=== PATIENT | female | born 1955 | race Caucasian/White ===

== ENCOUNTER 2018-12-17 08:45 | Emergency (ER) | payer MEDICARE, MEDICAID ==
[~2018-12-17] VITALS: Ht 162.6 cm; Wt 75.0 kg
[~2018-12-17 08:45] MED LIST: ALBU8HFA PO
--- NOTE | 2018-12-17 09:15 | NUR ---
xray at bedside
[2018-12-17] MEDS ORDERED: ondansetron/PF 4mg/2ml inj IV ONE (10:10)
[2018-12-17] MEDS ORDERED: morphine 4 MG/ML inj SYRINge IV ONE ×2 (10:10→10:55)
[2018-12-17] MEDS ORDERED: propofol 10mg/ml 20ml vial IV ONE (10:55)
--- NOTE | 2018-12-17 11:50 | NUR ---
DR PERALTA AT BEDSIDE FOR PROCEDURE RIGHT SHOULDER CLOSED REDUCTION. 1151 4CC/40MG PROPOFAL IV PUSH GIVEN BY DR PERALTA. 1153 ANOTHER 4CC/40MG PROPOFAL IV PUSH GIVEN BY DR PERALTA.
[2018-12-17] MEDS ORDERED: HYDR-3965 PO (13:14)
--- NOTE | 2018-12-17 21:13 | NUR ---
PT'S FRIEND ALEXANDER JUAN . I CALLED AND LEFT A MESSAGE FOR HER TO CALL US.
--- NOTE | 2018-12-17 21:53 | NUR ---
PT SLEEPING COMFORTABLY IN BED. NO NEEDS AT THIS TIME. WILL CONTINUE TO MONITOR UNTIL RIDE HOME IS FOUND FOR PT.
[2018-12-17 22:27] VITALS: BP 124/76
== END 2018-12-17 22:30 | disposition home or self-care (01) ==
LOC: ER 08:46
DX: S43.084A Other dislocation of right shoulder joint, initial encounter (principal); I25.10 Atherosclerotic heart disease of native coronary artery without angina pectoris; I10 Essential (primary) hypertension; I25.2 Old myocardial infarction; Z90.49 Acquired absence of other specified parts of digestive tract; Z98.890 Other specified postprocedural states; Z79.899 Other long term (current) drug therapy; W18.39XA Other fall on same level, initial encounter; Y93.89 Activity, other specified; Y92.89 Other specified places as the place of occurrence of the external cause; Y99.8 Other external cause status
CPT/HCPCS: 23650; 73020; 73030; 93005; 96374; 96375; 99152; 99285; J2270; J2405; J2704

== ENCOUNTER 2021-02-04 12:34 | Inpatient (IN) | payer BC, MEDICAID ==
[~2021-02-04] VITALS: Ht 165.1 cm; Wt 95.0 kg
[2021-02-04] MEDS ORDERED: albuterol 2.5 MG/3 ML nebule NEB ONE (13:35)
[2021-02-04 13:53] LABS: ALANINE AMINOTRANSFERASE 60 U/L (12-78); ALBUMIN 2.5 G/DL (3.4-5.0); ALBUMIN/GLOBULIN RATIO 0.6 (1.1-1.5); ALKALINE PHOSPHATASE 176 IU/L (46-116); ANION GAP 9 (8-16); BILIRUBIN,TOTAL 0.6 MG/DL (0.1-1.0); BLOOD UREA NITROGEN 14 MG/DL (7-18); BUN/CREATININE RATIO 18.4 (6.6-38.0); CALCIUM 8.4 MG/DL (8.5-10.1); CHLORIDE 102 MMOL/L (99-107); CREATININE 0.76 MG/DL (0.40-0.90); GLUCOSE 115 MG/DL (70-104); SODIUM 140 MMOL/L (135-145); TOTAL PROTEIN 6.9 G/DL (6.4-8.2); eGFR 77 ML/MIN
[2021-02-04 13:54] LABS: ASPARTATE AMINO TRANSFERASE 108 U/L (10-37); POTASSIUM 4.6 MMOL/L (3.5-5.1)
[2021-02-04 14:02] LABS: C-REACTIVE PROTEIN 15.71 MG/DL (0.0-0.5); LACTATE DEHYDROGENASE 714 U/L (81-234)
[2021-02-04 14:26] LABS: BASOPHILS % (AUTO) 0.3 % (0-1); EOSINOPHILS % (AUTO) 0 % (0-6); HEMATOCRIT 39.1 % (35.0-45.0); HEMOGLOBIN 13.1 g/dl (12.0-16.0); LYMPHOCYTES # (AUTO) 0.6 X10'3 (1.1-4.8); LYMPHOCYTES % (AUTO) 10.1 % (21-51); MEAN CORPUSCULAR HEMOGLOBIN 28.8 PG (27.0-31.0); MEAN CORPUSCULAR HGB CONC 33.5 g/dL (33.0-36.5); MEAN CORPUSCULAR VOLUME 85.9 FL (78-98); MEAN PLATELET VOLUME 7.6 FL (7.4-10.4); MONOCYTES # (AUTO) 1.1 X10'3 (0-0.9); MONOCYTES % (AUTO) 17.1 % (2-12); NEUTROPHILS # (AUTO) 4.6 X10'3 (1.8-7.7); NEUTROPHILS % (AUTO) 72.5 % (42-75); PLATELET COUNT 275 X10'3 (140-440); RED BLOOD COUNT 4.55 X10'6 (4.20-5.60); RED CELL DISTRIBUTION WIDTH 15.2 % (11.5-14.5); WHITE BLOOD COUNT 6.3 X10'3 (4.5-11.0)
[2021-02-04 14:37] LABS: D-DIMER 0.77 MG/L FEU (0-0.50); PARTIAL THROMBOPLASTIN TIME 32 SECONDS (22-32)
[2021-02-04] MEDS ORDERED: dexamethasone sod phosphate 10mg/ml inj IV STA (15:15)
[2021-02-04] MEDS ORDERED: REMDESIVIR INJ 200 MG in normal saline 100ml IV soln 60 ML IV ONE (15:45)
[2021-02-04] MEDS ORDERED: REMDESIVIR INJ 200 MG in normal saline 100ml IV soln 100 ML IV ONE (15:45)
[2021-02-04] MEDS ORDERED: potassium Cl 40MEQ/1/2NS 520ml 520 ML IV PRN ×2 (15:55)
[2021-02-04] MEDS ORDERED: magnesium 4gm in 100ml NS 100 ML IV PRN (15:55)
[2021-02-04] MEDS ORDERED: potassium Cl 20 mEq SR tablet PO PRN ×2 (15:55)
[2021-02-04] MEDS ORDERED: magnesium Cl slow-release 64mg tablet PO PRN (15:55)
[2021-02-04] MEDS ORDERED: magnesium hydroxide 30ml (MOM) UD suspension PO PRN (15:55)
[2021-02-04] MEDS ORDERED: ondansetron/PF 4mg/2ml inj IV PRN (15:55)
[2021-02-04] MEDS ORDERED: acetaminophen 325mg tablet PO PRN (15:55)
[2021-02-04] MEDS ORDERED: mag hydrox/Alum hydrox/simeth 30ml oral suspension PO PRN (15:55)
[2021-02-04] MEDS ORDERED: magnesium 2GM in 50ml NS 50 ML IV PRN (15:55)
[2021-02-04] MEDS: ALBUTEROL INHALER 1 PUFF/90 MCG INHALER IH SCH (16:00)
[2021-02-04] MEDS ORDERED: dexamethasone 4mg/ml inj IV SCH (16:00)
[2021-02-04] MEDS ORDERED: dexamethasone 6 MG in D5W 100ml IV soln IV SCH (16:08)
[2021-02-04] MEDS: normal saline 1000ml 1,000 ML IV SCH (17:12)
[2021-02-04] MEDS: benzonatate 100mg capsule PO SCH (17:19)
[2021-02-04] MEDS: dexamethasone 6 MG in D5W 100ml IV soln IV SCH (17:20)
[2021-02-04] MEDS ORDERED: ASPI-1071 PO (17:30)
[2021-02-04] MEDS ORDERED: ALBU8.5H17 INH (17:30)
[2021-02-04] MEDS ORDERED: ALLO100T25 PO (17:30)
[2021-02-04] MEDS ORDERED: ATOR-2 PO (17:30)
[2021-02-04] MEDS ORDERED: CARV6.253 PO (17:30)
[2021-02-04] MEDS: K and/or MAG REPLACEMENT MC SCH (19:18)
--- NOTE | 2021-02-04 21:26 | NUR ---
Allan garcia in [facility] - 02/04/21 at 2127 by SULMA BS was 108 at this time.
--- NOTE | 2021-02-04 21:27 | NUR ---
Incorrect BS note placed on patient, was meant for other patient. Note retracted.
--- NOTE | 2021-02-05 02:30 | NUR ---
PT IV UNINTENTIONALLY REMOVED, FOUND IV UNDER PT BACK. NEW IV PLACED. PT ASSISTED W/ CLOTHING CHANGE. PT INCONTINENT OF URINE. WAS UNAWARE SHE HAD SOAKED THE BED. LINEN CHANGE PROVIDED.
[2021-02-05] MEDS: heparin, porcine 5000 units/ml vial SQ SCH ×3 (02:50→20:50)
[2021-02-05] MEDS: ALBUTEROL INHALER 1 PUFF/90 MCG INHALER IH SCH ×6 (02:52→16:00)
[2021-02-05] MEDS: benzonatate 100mg capsule PO SCH ×3 (02:53→16:35)
--- NOTE | 2021-02-05 04:41 | NUR ---
pt requiring 5.0 ltr o2 on nc. pt c/o of feeling tired and weak.
[2021-02-05] MEDS: K and/or MAG REPLACEMENT MC SCH (08:00)
[2021-02-05 08:37] LABS: BASOPHILS % (AUTO) 0.2 % (0-1); EOSINOPHILS % (AUTO) 0 % (0-6); HEMATOCRIT 41.2 % (35.0-45.0); HEMOGLOBIN 13.5 g/dl (12.0-16.0); LYMPHOCYTES # (AUTO) 0.5 X10'3 (1.1-4.8); LYMPHOCYTES % (AUTO) 7.5 % (21-51); MEAN CORPUSCULAR HEMOGLOBIN 28.8 PG (27.0-31.0); MEAN CORPUSCULAR HGB CONC 32.8 g/dL (33.0-36.5); MEAN PLATELET VOLUME 7.6 FL (7.4-10.4); MONOCYTES # (AUTO) 0.7 X10'3 (0-0.9); MONOCYTES % (AUTO) 11.1 % (2-12); NEUTROPHILS % (AUTO) 81.2 % (42-75); PLATELET COUNT 258 X10'3 (140-440); RED BLOOD COUNT 4.68 X10'6 (4.20-5.60); RED CELL DISTRIBUTION WIDTH 15.5 % (11.5-14.5); WHITE BLOOD COUNT 6.2 X10'3 (4.5-11.0)
[2021-02-05] MEDS: dexamethasone 6 MG in D5W 100ml IV soln IV SCH ×3 (08:44)
[2021-02-05 08:54] LABS: ALANINE AMINOTRANSFERASE 57 U/L (12-78); ALBUMIN 2.3 G/DL (3.4-5.0); ALBUMIN/GLOBULIN RATIO 0.5 (1.1-1.5); ALKALINE PHOSPHATASE 170 IU/L (46-116); ANION GAP 7 (8-16); ASPARTATE AMINO TRANSFERASE 102 U/L (10-37); BILIRUBIN,TOTAL 0.4 MG/DL (0.1-1.0); BLOOD UREA NITROGEN 17 MG/DL (7-18); BUN/CREATININE RATIO 24.3 (6.6-38.0); C-REACTIVE PROTEIN 17.78 MG/DL (0.0-0.5); CALCIUM 8.6 MG/DL (8.5-10.1); CHLORIDE 104 MMOL/L (99-107); GLUCOSE 146 MG/DL (70-104); MAGNESIUM 2.4 MG/DL (1.5-2.4); SODIUM 139 MMOL/L (135-145); TOTAL CARBON DIOXIDE 28.4 MMOL/L (24-32); eGFR 84 ML/MIN
[2021-02-05 08:56] LABS: POTASSIUM 4.7 MMOL/L (3.5-5.1)
--- NOTE | 2021-02-05 09:02 | NUR ---
RECEIVED REPORT FROM REMBERTO VALENZUELA IN ED
[2021-02-05] MEDS: CefTRIAXone 2gm/D5W 50ml BAG 50 ML IV SCH (09:15)
[2021-02-05 09:30] VITALS: BP 155/83
--- NOTE | 2021-02-05 09:43 | NUR ---
PT ARRIVED TO FLOOR AT 0920, WENT TO ROOM 4022B.
[2021-02-05 14:00] VITALS: BP 149/79
[2021-02-05] MEDS ORDERED: albuterol 2.5 MG/3 ML nebule NEB SCH (16:00)
[2021-02-05 17:18] LABS: D-DIMER 0.89 MG/L FEU (0-0.50)
--- NOTE | 2021-02-05 17:39 | NUR ---
pt's iv fell out this morning around 1000. iv starts have been attempted 8 times with no success. will alert MD to to fact pt has not received remdesivir or decadron d/t no iv.
--- NOTE | 2021-02-05 17:42 | NUR ---
Page Sent PAGER ID: [phone] MESSAGE: [phone] Re: Sabina Montes [id number] pt's IV fell out this morning before receiving Remdesivir. there have been several attempts to start new IV with no success, will page PICC nurse in AM to start a new IV. Thanks!
[2021-02-05 18:00] VITALS: BP 137/69
--- NOTE | 2021-02-05 18:37 | NUR ---
Patient in room ORTHO 4022. I have received report from ASUNCION SR and had the opportunity to ask questions and assume patient care.
--- NOTE | 2021-02-05 18:48 | NUR ---
Problems reprioritized. Patient report given, questions answered & plan of care reviewed with REMBERTO Brady.
[2021-02-05] MEDS: lactobacillus rhamnosus 10,000 MMU CELLS/CAPSULE PO SCH (20:50)
[2021-02-05] MEDS: carvedilol 6.25mg tablet PO SCH (20:51)
[2021-02-05 22:00] VITALS: BP 120/49
[2021-02-06] MEDS ORDERED: DEXAMETHASONE 6 MG TABLET PO SCH
[2021-02-06] MEDS: benzonatate 100mg capsule PO SCH ×3 (01:04→20:34)
[2021-02-06 02:00] VITALS: BP 146/68
[2021-02-06 06:00] VITALS: BP 156/78
--- NOTE | 2021-02-06 06:43 | NUR ---
Problems reprioritized. Patient report given, questions answered & plan of care reviewed with DOMENIC SR.
[2021-02-06 07:09] LABS: BASOPHILS % (AUTO) 0.1 % (0-1); EOSINOPHILS % (AUTO) 0 % (0-6); HEMATOCRIT 38.6 % (35.0-45.0); HEMOGLOBIN 12.8 g/dl (12.0-16.0); LYMPHOCYTES # (AUTO) 0.5 X10'3 (1.1-4.8); MEAN CORPUSCULAR HEMOGLOBIN 28.7 PG (27.0-31.0); MEAN CORPUSCULAR HGB CONC 33.3 g/dL (33.0-36.5); MEAN CORPUSCULAR VOLUME 86.3 FL (78-98); MEAN PLATELET VOLUME 7.5 FL (7.4-10.4); MONOCYTES # (AUTO) 0.7 X10'3 (0-0.9); MONOCYTES % (AUTO) 12.9 % (2-12); PLATELET COUNT 395 X10'3 (140-440); RED BLOOD COUNT 4.47 X10'6 (4.20-5.60); RED CELL DISTRIBUTION WIDTH 15.2 % (11.5-14.5); WHITE BLOOD COUNT 5.1 X10'3 (4.5-11.0)
[2021-02-06 07:41] LABS: ALANINE AMINOTRANSFERASE 57 U/L (12-78); ALBUMIN 2.2 G/DL (3.4-5.0); ALBUMIN/GLOBULIN RATIO 0.5 (1.1-1.5); ALKALINE PHOSPHATASE 148 IU/L (46-116); ANION GAP 6 (8-16); ASPARTATE AMINO TRANSFERASE 68 U/L (10-37); BILIRUBIN,TOTAL 0.3 MG/DL (0.1-1.0); BLOOD UREA NITROGEN 29 MG/DL (7-18); BUN/CREATININE RATIO 35.4 (6.6-38.0); C-REACTIVE PROTEIN 10.19 MG/DL (0.0-0.5); CALCIUM 8.9 MG/DL (8.5-10.1); CHLORIDE 105 MMOL/L (99-107); CREATININE 0.82 MG/DL (0.40-0.90); GLUCOSE 159 MG/DL (70-104); MAGNESIUM 2.6 MG/DL (1.5-2.4); POTASSIUM 4.5 MMOL/L (3.5-5.1); SODIUM 144 MMOL/L (135-145); TOTAL CARBON DIOXIDE 33.3 MMOL/L (24-32); TOTAL PROTEIN 6.8 G/DL (6.4-8.2); eGFR 70 ML/MIN
[2021-02-06] MEDS ORDERED: levoFLOXACIN 500mg tablet PO ONE (08:00)
[2021-02-06] MEDS: K and/or MAG REPLACEMENT MC SCH ×2 (08:00→20:00)
[2021-02-06] MEDS: dexamethasone 6 MG in D5W 100ml IV soln IV SCH ×2 (10:18→20:33)
[2021-02-06 11:00] VITALS: BP 145/77
[2021-02-06] MEDS: CefTRIAXone 2gm/D5W 50ml BAG 50 ML IV SCH (12:46)
[2021-02-06] MEDS: heparin, porcine 5000 units/ml vial SQ SCH ×2 (12:50→20:34)
[2021-02-06 14:00] VITALS: BP 137/71
[2021-02-06] MEDS: REMDESIVIR INJ 100 MG in normal saline 100ml IV soln 80 ML IV SCH ×2 (15:19→20:27)
[2021-02-06] MEDS: lactobacillus rhamnosus 10,000 MMU CELLS/CAPSULE PO SCH ×2 (15:20→20:33)
[2021-02-06] MEDS: aspirin 81mg, enteric-coated 1 TAB TABLET.DR PO SCH (15:20)
[2021-02-06] MEDS: allopurinol 100mg tablet PO SCH (15:21)
[2021-02-06] MEDS: atorvastatin 20mg tablet PO SCH (15:21)
[2021-02-06 16:25] LABS: D-DIMER 0.84 MG/L FEU (0-0.50)
[2021-02-06 18:00] VITALS: BP 137/70
--- NOTE | 2021-02-06 18:20 | NUR ---
Patient in room ORTHO 4022B. I have received report from REMBERTO Kaufman and had the opportunity to ask questions and assume patient care.
[2021-02-06] MEDS: carvedilol 6.25mg tablet PO SCH (20:34)
[2021-02-06] MEDS: normal saline 1000ml 1,000 ML IV SCH (20:35)
[2021-02-06 22:00] VITALS: BP 129/68
[2021-02-07 06:00] VITALS: BP 187/85
--- NOTE | 2021-02-07 06:25 | NUR ---
Problems reprioritized. Patient report given, questions answered & plan of care reviewed with REMBERTO Kaufman.
[2021-02-07 07:10] LABS: BASOPHILS % (AUTO) 0.2 % (0-1); EOSINOPHILS % (AUTO) 0 % (0-6); HEMATOCRIT 37.7 % (35.0-45.0); HEMOGLOBIN 12.3 g/dl (12.0-16.0); LYMPHOCYTES # (AUTO) 0.6 X10'3 (1.1-4.8); LYMPHOCYTES % (AUTO) 6.9 % (21-51); MEAN CORPUSCULAR HEMOGLOBIN 28.1 PG (27.0-31.0); MEAN CORPUSCULAR HGB CONC 32.6 g/dL (33.0-36.5); MEAN CORPUSCULAR VOLUME 86.2 FL (78-98); MEAN PLATELET VOLUME 7.6 FL (7.4-10.4); MONOCYTES # (AUTO) 0.8 X10'3 (0-0.9); MONOCYTES % (AUTO) 8.4 % (2-12); NEUTROPHILS # (AUTO) 7.7 X10'3 (1.8-7.7); NEUTROPHILS % (AUTO) 84.5 % (42-75); PLATELET COUNT 482 X10'3 (140-440); RED BLOOD COUNT 4.37 X10'6 (4.20-5.60); RED CELL DISTRIBUTION WIDTH 15.3 % (11.5-14.5); WHITE BLOOD COUNT 9.2 X10'3 (4.5-11.0)
[2021-02-07 07:54] LABS: ALANINE AMINOTRANSFERASE 56 U/L (12-78); ALBUMIN 2.1 G/DL (3.4-5.0); ALBUMIN/GLOBULIN RATIO 0.5 (1.1-1.5); ALKALINE PHOSPHATASE 126 IU/L (46-116); ANION GAP 7 (8-16); ASPARTATE AMINO TRANSFERASE 52 U/L (10-37); BILIRUBIN,TOTAL 0.3 MG/DL (0.1-1.0); BLOOD UREA NITROGEN 33 MG/DL (7-18); BUN/CREATININE RATIO 32.4 (6.6-38.0); CALCIUM 8.5 MG/DL (8.5-10.1); CHLORIDE 106 MMOL/L (99-107); CREATININE 1.02 MG/DL (0.40-0.90); GLUCOSE 154 MG/DL (70-104); MAGNESIUM 2.5 MG/DL (1.5-2.4); POTASSIUM 4.5 MMOL/L (3.5-5.1); SODIUM 143 MMOL/L (135-145); TOTAL CARBON DIOXIDE 30.2 MMOL/L (24-32); TOTAL PROTEIN 6.3 G/DL (6.4-8.2); eGFR 55 ML/MIN
[2021-02-07] MEDS: K and/or MAG REPLACEMENT MC SCH ×2 (08:00→20:00)
[2021-02-07 10:00] VITALS: BP 151/76
[2021-02-07] MEDS: dexamethasone 6 MG in D5W 100ml IV soln IV SCH ×5 (10:57→23:39)
[2021-02-07] MEDS: heparin, porcine 5000 units/ml vial SQ SCH ×2 (11:06→20:11)
[2021-02-07] MEDS: aspirin 81mg, enteric-coated 1 TAB TABLET.DR PO SCH (11:06)
[2021-02-07] MEDS: atorvastatin 20mg tablet PO SCH (11:06)
[2021-02-07] MEDS: lactobacillus rhamnosus 10,000 MMU CELLS/CAPSULE PO SCH ×2 (11:06→20:11)
[2021-02-07] MEDS: benzonatate 100mg capsule PO PRN ×2 (11:07→20:12)
[2021-02-07] MEDS: carvedilol 6.25mg tablet PO SCH ×2 (11:07→20:11)
[2021-02-07] MEDS: allopurinol 100mg tablet PO SCH (11:08)
[2021-02-07] MEDS: CefTRIAXone 2gm/D5W 50ml BAG 50 ML IV SCH (11:15)
[2021-02-07] MEDS: REMDESIVIR INJ 100 MG in normal saline 100ml IV soln 100 ML IV SCH (17:38)
--- NOTE | 2021-02-07 18:30 | NUR ---
Patient in room ORTHO 4022. I have received report from REMBERTO Kaufman and had the opportunity to ask questions and assume patient care.
[2021-02-07 19:00] VITALS: BP 133/51
[2021-02-07 22:00] VITALS: BP 142/50
[2021-02-07] MEDS: normal saline 1000ml 1,000 ML IV SCH (23:45)
[2021-02-07] MEDS: acetaminophen 325mg tablet PO PRN (23:50)
[2021-02-08] MEDS: guaiFENesin 200 MG/10 ML oral syrup UD cup PO PRN ×2 (00:26→20:27)
[2021-02-08] MEDS: ALBUTEROL INHALER 1 PUFF/90 MCG INHALER IH SCH ×4 (00:28→08:00)
[2021-02-08 02:00] VITALS: BP 148/60
[2021-02-08] MEDS: benzonatate 100mg capsule PO PRN (04:00)
[2021-02-08 04:32] LABS: BASOPHILS % (AUTO) 0.2 % (0-1); EOSINOPHILS % (AUTO) 0 % (0-6); HEMATOCRIT 37.6 % (35.0-45.0); HEMOGLOBIN 12.5 g/dl (12.0-16.0); LYMPHOCYTES # (AUTO) 0.5 X10'3 (1.1-4.8); LYMPHOCYTES % (AUTO) 5.9 % (21-51); MEAN CORPUSCULAR HEMOGLOBIN 28.2 PG (27.0-31.0); MEAN CORPUSCULAR HGB CONC 33.2 g/dL (33.0-36.5); MEAN CORPUSCULAR VOLUME 84.9 FL (78-98); MEAN PLATELET VOLUME 7.4 FL (7.4-10.4); MONOCYTES # (AUTO) 0.5 X10'3 (0-0.9); MONOCYTES % (AUTO) 6.1 % (2-12); NEUTROPHILS # (AUTO) 7.3 X10'3 (1.8-7.7); NEUTROPHILS % (AUTO) 87.8 % (42-75); PLATELET COUNT 494 X10'3 (140-440); RED BLOOD COUNT 4.43 X10'6 (4.20-5.60); WHITE BLOOD COUNT 8.3 X10'3 (4.5-11.0)
[2021-02-08 04:40] LABS: ALANINE AMINOTRANSFERASE 50 U/L (12-78); ALBUMIN 2.4 G/DL (3.4-5.0); ALBUMIN/GLOBULIN RATIO 0.6 (1.1-1.5); ALKALINE PHOSPHATASE 115 IU/L (46-116); ANION GAP 5 (8-16); ASPARTATE AMINO TRANSFERASE 41 U/L (10-37); BILIRUBIN,TOTAL 0.3 MG/DL (0.1-1.0); BLOOD UREA NITROGEN 33 MG/DL (7-18); BUN/CREATININE RATIO 37.1 (6.6-38.0); CALCIUM 8.5 MG/DL (8.5-10.1); CHLORIDE 106 MMOL/L (99-107); CREATININE 0.89 MG/DL (0.40-0.90); GLUCOSE 168 MG/DL (70-104); MAGNESIUM 2.4 MG/DL (1.5-2.4); POTASSIUM 4.4 MMOL/L (3.5-5.1); SODIUM 142 MMOL/L (135-145); TOTAL CARBON DIOXIDE 30.7 MMOL/L (24-32); TOTAL PROTEIN 6.1 G/DL (6.4-8.2); eGFR 64 ML/MIN
[2021-02-08 06:00] VITALS: BP 151/59
--- NOTE | 2021-02-08 06:26 | NUR ---
Problems reprioritized. Patient report given, questions answered & plan of care reviewed with REMBERTO Kaufman.
[2021-02-08] MEDS: K and/or MAG REPLACEMENT MC SCH ×2 (08:00→19:17)
[2021-02-08] MEDS: dexamethasone 6 MG in D5W 100ml IV soln IV SCH ×2 (08:50→17:58)
[2021-02-08] MEDS: aspirin 81mg, enteric-coated 1 TAB TABLET.DR PO SCH (08:50)
[2021-02-08] MEDS: allopurinol 100mg tablet PO SCH (08:50)
[2021-02-08] MEDS: carvedilol 6.25mg tablet PO SCH ×2 (08:50→20:27)
[2021-02-08] MEDS: atorvastatin 20mg tablet PO SCH (08:50)
[2021-02-08] MEDS: heparin, porcine 5000 units/ml vial SQ SCH ×2 (08:50→20:28)
[2021-02-08] MEDS: lactobacillus rhamnosus 10,000 MMU CELLS/CAPSULE PO SCH ×2 (08:50→20:27)
[2021-02-08] MEDS: REMDESIVIR INJ 100 MG in normal saline 100ml IV soln 100 ML IV SCH (09:30)
[2021-02-08 10:00] VITALS: BP 149/62
--- NOTE | 2021-02-08 10:50 | NUR ---
Initial: Pt admit for acute respiratory failure and COVID PNA. Currently on a heart healthy diet and initially with 0% PO intake however up to 75-100% PO intake 02/07. Pending documentation of PO intake for today. LBM 02/07, documented with diarrhea. No nutrition intervention implemented at this time given recent improvement in PO intake. Will continue to follow and make recommendations as appropriate. Recommendations: 1) Continue heart healthy diet; liberalize to regular diet it PO intake declines 2) Monitor need for additional protein/ONS 3) Bowel care per rx; consider antidiarrheal if diarrhea persists 4) Scaled weight this admit; weekly scaled weights thereafter Addendum: 02/08/21 at [address] Amended: Links added.
[2021-02-08 14:00] VITALS: BP 168/73
[2021-02-08] MEDS: CefTRIAXone 2gm/D5W 50ml BAG 50 ML IV SCH (15:52)
[2021-02-08] MEDS: normal saline 1000ml 1,000 ML IV SCH (15:55)
--- NOTE | 2021-02-08 16:36 | NUR ---
PAGER ID: [phone] MESSAGE: [phone] Simon PT said NOT SAFE for dc today. [id number] DOMENIC
[2021-02-08 18:00] VITALS: BP 138/63
--- NOTE | 2021-02-08 18:30 | NUR ---
Patient in room ORTHO 4022. I have received report from Shae SR and had the opportunity to ask questions and assume patient care.
--- NOTE | 2021-02-08 18:37 | NUR ---
Report to Fadumo SR
[2021-02-08 22:00] VITALS: BP 152/70
[2021-02-09] MEDS: dexamethasone 6 MG in D5W 100ml IV soln IV SCH ×3 (00:19→16:12)
[2021-02-09 02:41] VITALS: BP 150/70
[2021-02-09 04:48] LABS: BASOPHILS % (AUTO) 0.1 % (0-1); EOSINOPHILS % (AUTO) 0 % (0-6); HEMATOCRIT 37.2 % (35.0-45.0); HEMOGLOBIN 12.5 g/dl (12.0-16.0); LYMPHOCYTES # (AUTO) 0.5 X10'3 (1.1-4.8); LYMPHOCYTES % (AUTO) 6.1 % (21-51); MEAN CORPUSCULAR HEMOGLOBIN 28.4 PG (27.0-31.0); MEAN CORPUSCULAR HGB CONC 33.5 g/dL (33.0-36.5); MEAN CORPUSCULAR VOLUME 84.8 FL (78-98); MEAN PLATELET VOLUME 7.2 FL (7.4-10.4); MONOCYTES # (AUTO) 0.7 X10'3 (0-0.9); MONOCYTES % (AUTO) 8.3 % (2-12); NEUTROPHILS % (AUTO) 85.5 % (42-75); PLATELET COUNT 523 X10'3 (140-440); RED BLOOD COUNT 4.39 X10'6 (4.20-5.60); WHITE BLOOD COUNT 8.2 X10'3 (4.5-11.0)
[2021-02-09 05:05] LABS: ALANINE AMINOTRANSFERASE 50 U/L (12-78); ALBUMIN 2.3 G/DL (3.4-5.0); ALBUMIN/GLOBULIN RATIO 0.6 (1.1-1.5); ALKALINE PHOSPHATASE 100 IU/L (46-116); ANION GAP 6 (8-16); ASPARTATE AMINO TRANSFERASE 33 U/L (10-37); BILIRUBIN,TOTAL 0.3 MG/DL (0.1-1.0); BLOOD UREA NITROGEN 28 MG/DL (7-18); BUN/CREATININE RATIO 33.7 (6.6-38.0); CALCIUM 8.1 MG/DL (8.5-10.1); CHLORIDE 104 MMOL/L (99-107); CREATININE 0.83 MG/DL (0.40-0.90); GLUCOSE 167 MG/DL (70-104); MAGNESIUM 2.3 MG/DL (1.5-2.4); POTASSIUM 4.3 MMOL/L (3.5-5.1); SODIUM 142 MMOL/L (135-145); TOTAL CARBON DIOXIDE 31.6 MMOL/L (24-32); TOTAL PROTEIN 5.9 G/DL (6.4-8.2); eGFR 69 ML/MIN
--- NOTE | 2021-02-09 06:23 | NUR ---
Problems reprioritized. Patient report given, questions answered & plan of care reviewed with Boris RN.
--- NOTE | 2021-02-09 06:36 | NUR ---
Patient in room ORTHO 4022. I have received report from Fadumo SR and had the opportunity to ask questions and assume patient care.
[2021-02-09] MEDS: K and/or MAG REPLACEMENT MC SCH ×2 (08:00→19:46)
[2021-02-09 10:00] VITALS: BP 151/73
[2021-02-09] MEDS: aspirin 81mg, enteric-coated 1 TAB TABLET.DR PO SCH (10:10)
[2021-02-09] MEDS: allopurinol 100mg tablet PO SCH (10:12)
[2021-02-09] MEDS: CefTRIAXone 2gm/D5W 50ml BAG 50 ML IV SCH (10:12)
[2021-02-09] MEDS: lactobacillus rhamnosus 10,000 MMU CELLS/CAPSULE PO SCH ×2 (10:12→19:54)
[2021-02-09] MEDS: atorvastatin 20mg tablet PO SCH (10:12)
[2021-02-09] MEDS: carvedilol 6.25mg tablet PO SCH ×2 (10:12→19:54)
[2021-02-09] MEDS: heparin, porcine 5000 units/ml vial SQ SCH ×2 (10:13→19:55)
[2021-02-09] MEDS: benzonatate 100mg capsule PO PRN (11:07)
[2021-02-09] MEDS: REMDESIVIR INJ 100 MG in normal saline 100ml IV soln 100 ML IV SCH (11:07)
[2021-02-09] MEDS: guaiFENesin 200 MG/10 ML oral syrup UD cup PO PRN ×2 (11:38→19:54)
--- NOTE | 2021-02-09 14:33 | NUR ---
Patient walking with PT, Basia PT reported the following O2 Sat at rest on room air:_91__% If below 89%: Recovery O2 Sat at rest on __2_LPM:___%:___% via_nasal cannula___(mask/nasal cannula, etc..) No further documentation is necessary. If O2 Sat did not drop below 89% on room air,ambulate patient on room air. O2 Sat while ambulating on room air:_85__% Recovery O2 Sat while ambulating on __3_LPM:___% No further documentation is necessary. If patient does not drop below 89% while ambulating, he/she does not qualify for home O2.
--- NOTE | 2021-02-09 15:09 | NUR ---
nonprofit manager Marilynn was notified about patient needs: home O2, front wheel walker, and transportation
--- NOTE | 2021-02-09 15:23 | NUR ---
Patient confirmed to me that she does not have anybody to pick her up upon discharge. She agreed to be discharge tomorrow instead of today as counseling case manager Marilynn reported that she could not get transportation service today but tomorrow.
[2021-02-09] MEDS ORDERED: PRED10TA23 PO (15:43)
[2021-02-09] MEDS ORDERED: GUAI100L97 PO (15:44)
[2021-02-09] MEDS ORDERED: LEVO500T90 PO (15:44)
[2021-02-09] MEDS ORDERED: BENZ-69 PO (15:44)
--- NOTE | 2021-02-09 17:23 | NUR ---
Paged Dr. Evans PAGER ID: [phone] MESSAGE: Ortho/Neuro Rosanne SR ext [phone]. Geoff Harris. Patient still desatting consistently 82-85% even with NRB mask and tower high flow oxygen. Do you want RT to start him on BIPAP? Addendum: 02/09/21 at 1727 by Rosanne Gross RN charted in the wrong patient chart, unable to undo the above note
--- NOTE | 2021-02-09 17:35 | NUR ---
Paged Dr. Evans PAGER ID: [phone] MESSAGE: Ortho/Neuro Rosanne RN ext [phone]. RE: Sabina Montes. Just FYI, patient did not have available flower picker today but tomorrow am per Parachute Supervisor. She need transportation arrangement
[2021-02-09 18:00] VITALS: BP 159/63
--- NOTE | 2021-02-09 18:32 | NUR ---
Patient in room ORTHO 4022. I have received report from Boris SR and had the opportunity to ask questions and assume patient care.
[2021-02-09] MEDS: acetaminophen 325mg tablet PO PRN (19:55)
[2021-02-09 22:00] VITALS: BP 159/81
[2021-02-09] MEDS ORDERED: ALBUTEROL INHALER 1 PUFF/90 MCG INHALER IH PRN (23:50)
[2021-02-10] MEDS: dexamethasone 6 MG in D5W 100ml IV soln IV SCH ×2 (00:15→08:23)
[2021-02-10 02:00] VITALS: BP 144/61
--- NOTE | 2021-02-10 06:46 | NUR ---
Problems reprioritized. Patient report given, questions answered & plan of care reviewed with Alberto SR.
[2021-02-10] MEDS: CefTRIAXone 2gm/D5W 50ml BAG 50 ML IV SCH (08:23)
[2021-02-10] MEDS: allopurinol 100mg tablet PO SCH (08:24)
[2021-02-10] MEDS: lactobacillus rhamnosus 10,000 MMU CELLS/CAPSULE PO SCH (08:24)
[2021-02-10] MEDS: carvedilol 6.25mg tablet PO SCH (08:24)
[2021-02-10] MEDS: heparin, porcine 5000 units/ml vial SQ SCH (08:24)
[2021-02-10] MEDS: atorvastatin 20mg tablet PO SCH (08:24)
[2021-02-10] MEDS: aspirin 81mg, enteric-coated 1 TAB TABLET.DR PO SCH (08:24)
[2021-02-10] MEDS: K and/or MAG REPLACEMENT MC SCH (08:25)
== END 2021-02-10 09:30 | disposition home or self-care (01) | DRG 177 ==
LOC: ER 12:35 → ED HOLD 16:00 → ORTHO 4S 02-05 09:23
PROVIDERS: ADMIT Internal Medicine; ATTEND Internal Medicine
PROC: XW033E5 Introduction of Remdesivir Anti-infective into Peripheral Vein, Percutaneous Approach, New Technology Group 5 (ICD-10-PCS; principal; 2021-02-04)
DX: U07.1 COVID-19 (principal); J12.82 Pneumonia due to coronavirus disease 2019; J96.01 Acute respiratory failure with hypoxia; J45.901 Unspecified asthma with (acute) exacerbation; I25.10 Atherosclerotic heart disease of native coronary artery without angina pectoris; M10.9 Gout, unspecified; I48.91 Unspecified atrial fibrillation; I10 Essential (primary) hypertension; I25.2 Old myocardial infarction; Z90.49 Acquired absence of other specified parts of digestive tract; Z95.5 Presence of coronary angioplasty implant and graft
CPT/HCPCS: 36415; 71045; 76937; 80053; 83605; 83615; 83735; 83880; 84145; 85025; 85379; 85610; 85730; 86140; 87040; 87081; 87635; 93005; 97110; 97116; 97161; 97530; 99285; C9803; G0378; J0696; J1100; J1644; J7030; J7060; J8540

== ENCOUNTER 2024-08-11 16:03 | Inpatient (IN) | payer BC, MEDICAID ==
[~2024-08-11] VITALS: Ht 165.1 cm; Wt 103.6 kg
[~2024-08-11 16:03] MED LIST changes: +ALBU8.5H17 INH; -ALBU8HFA PO; +ALLO100T25 PO; +ASPI-1071 PO; +ATOR-2 PO; +CARV-50 PO; +CYCL-1 PO; +NAPR-1168 PO
--- NOTE | 2024-08-11 16:10 | ELECTROCARDIOGRAPH REPORT ---
[facility] Test Date: 2024-08-11 Test Time: 16:08:02 Pat Name: TRINIDAD DUTTON Department: EMERGENCY ROOM Room: [place] [address] Gender: F Aircraft Maintenance Supervisor: PM : 1955 Requested By: TAYLOR DOUGLASS Order Number: [id number] Reading MD: Dr. Reese Quesada Measurements Intervals [place] Rate: 67 P: 63 TN: 166 QRS: 41 QRSD: 114 T: 104 QT: 465 QTc: 491 Interpretive Statements Sinus rhythm Incomplete left bundle branch block Borderline prolonged QT interval Electronically Signed On 08-12-2024 6:49:[address] Reese Quesada Please click the below link to view image of tracing.
[2024-08-11 16:40] LABS: BASOPHILS # (AUTO) 0.1 X10'3 (0-0.2); BASOPHILS % (AUTO) 0.7 % (0-1); EOSINOPHILS # (AUTO) 0.2 X10'3 (0-0.9); EOSINOPHILS % (AUTO) 1.6 % (0-6); HEMATOCRIT 22.9 % (35.0-45.0); HEMOGLOBIN 7.6 g/dl (12.0-16.0); LYMPHOCYTES # (AUTO) 1.5 X10'3 (1.1-4.8); LYMPHOCYTES % (AUTO) 10.7 % (21-51); MEAN CORPUSCULAR HEMOGLOBIN 29.8 PG (27.0-31.0); MEAN CORPUSCULAR HGB CONC 33.3 g/dL (33.0-36.5); MEAN CORPUSCULAR VOLUME 89.5 FL (78-98); MEAN PLATELET VOLUME 8.1 FL (7.4-10.4); MONOCYTES # (AUTO) 1.5 X10'3 (0-0.9); MONOCYTES % (AUTO) 10.6 % (2-12); NEUTROPHILS # (AUTO) 10.6 X10'3 (1.8-7.7); NEUTROPHILS % (AUTO) 76.4 % (42-75); PLATELET COUNT 362 X10'3 (140-440); RED BLOOD COUNT 2.56 X10'6 (4.20-5.60); RED CELL DISTRIBUTION WIDTH 14.3 % (11.5-14.5); WHITE BLOOD COUNT 13.8 X10'3 (4.5-11.0)
--- NOTE | 2024-08-11 16:43 | RADIOLOGY REPORT ---
CHEST RADIOGRAPH Indication: CP Technique: Single frontal view of the chest was obtained Comparison: DI CHEST,SINGLE VIEW on DOS: 08/10/24, DI CHEST,SINGLE VIEW on DOS: 08/09/24, DI CHEST,SING LE VIEW on DOS: 08/08/24, DI CHEST,SINGLE VIEW on DOS: 08/06/24, DI CHEST,SINGLE VIEW on DOS: 08/05/24 FINDINGS: Lines and Tubes: None Lungs: No focal consolidation. Pleura: No effusion. No pneumothorax. Cardiomediastinal contours: There is cardiomegaly with median sternotomy. Bones: No acute osseous abnormality. Osteopenia IMPRESSION: 1. Cardiomegaly with median sternotomy 2. No evidence of airspace consolidation pulmonary venous congestion
[2024-08-11] MEDS: ipratropium/albuterol 3ml nebule NEB ONE (16:51)
[2024-08-11 16:53] VITALS: PULSE 69; RESP 18; O2SAT 98
[2024-08-11 16:54] LABS: ALANINE AMINOTRANSFERASE 72 U/L (12-78); ALBUMIN 2.4 G/DL (3.4-5.0); ALBUMIN/GLOBULIN RATIO 0.8 (1.1-1.5); ALKALINE PHOSPHATASE 133 IU/L (46-116); ANION GAP 2 (8-16); ASPARTATE AMINO TRANSFERASE 36 U/L (10-37); BILIRUBIN,TOTAL 0.6 MG/DL (0.1-1.0); BLOOD UREA NITROGEN 30 MG/DL (7-18); BUN/CREATININE RATIO 35.3 (10.0-20.0); CALCIUM 8.5 MG/DL (8.5-10.1); CHLORIDE 100 MMOL/L (99-107); CREATININE 0.85 MG/DL (0.40-0.90); GLUCOSE 137 MG/DL (70-104); POTASSIUM 4.3 MMOL/L (3.5-5.1); SODIUM 139 MMOL/L (135-145); TOTAL PROTEIN 5.6 G/DL (6.4-8.2); eCRCL 57 ML/MIN; eGFR 67 ML/MIN
[2024-08-11 16:59] VITALS: PULSE 70; RESP 17; O2SAT 100
[2024-08-11 17:01] LABS: PRO BRAIN NATRIURETIC PEPTIDE 3644 PG/ML (0-125)
[2024-08-11 17:14] LABS: TOTAL CELLS COUNTED 100
[2024-08-11 17:16] LABS: ANISOCYTOSIS 1+; HYPOCHROMASIA 1+; PLATELET ESTIMATE NORMAL; POLYCHROMASIA 1+
--- NOTE | 2024-08-11 18:03 | Physician Documentation ---
History of Present Illness ~ Chief Complaint: Shortness of Breath Stated Complaint: SOB Time Seen by MD: 17:29 Primary Medical Doctor: NONE Mode of Arrival: EMS HPI This is a 69-year-old female status post recent CABG at our facility presents for evaluation of shortness a breath. It is both exertional and positional. She does require supplemental oxygen which is not baseline for her. Denies any chest pain. No particular palliating factors other than rest. Supplemental oxygen is helping. Breathing treatments are helping. Medication Reconciliation Allergies: Coded Allergies: eucalyptus (Verified Allergy, Unknown, 07/31/24) Scheduled Allopurinol (Allopurinol), 1 TAB PO DAILY, (Reported) Aspirin (Ecotrin*), 1 TAB PO DAILY, (Reported) Atorvastatin Calcium (Atorvastatin Calcium), 1 TAB PO DAILY, (Reported) Carvedilol (Carvedilol), 1 TAB PO Q12H, (Reported) Naproxen (Naproxen), 500 MG PO BID, (Reported) Scheduled PRN Albuterol Sulfate (Proair Hfa), 2 PUFFS INH Q4HPRN PRN for wheezing, (Reported) Cyclobenzaprine* (Cyclobenzaprine*), 1 TAB PO HS PRN for ., (Reported) Past Medical History Past Medical History: Coronary Artery Disease, Hypertension, Myocardial Infarction, Asthma, Arthritis, Chronic Pain Past Surgical History: appendectomy, orthopedic surgeries, tubal ligation Other Past Surgical History: PCI stent; eye surgery as a child Alcohol Use: None Lives with: Family Lives In: Home Review of Systems ROS 10 point review of systems was performed and unless noted above in HPI is negative for acute process/complaint. Physical Exam Vital Signs: Temperature: 96.6, Source: Temporal, Heart Rate: 69, Respiratory Rate: 19, BP: 141/58, Pulse Oximetry: 96, Weight: 108.000 Oxygen Flow Rate: 5.0 Physical Exam GENERAL: Awake, alert, oriented, GCS 15, no apparent distress, non-toxic appearing, answers questions, follows commands appropriately. Examined in bed 5. HEENT: Atraumatic, normocephalic, pupils equal, extraocular muscles intact, sclerae anicteric, mucus membranes moist, oropharynx is clear, no stridor. NECK: supple, full active range of motion, trachea midline, no thyromegaly, no lymphadenopathy, no JVD. CARDIOVASCULAR: regular rate/rhythm, no murmurs/gallops/rubs, Pulses are 2+ in all extremities and symmetric. Capillary refill less than 2 seconds. PULMONARY: Labored, tachypneic, decreased air movement , mild respiratory distress, speaking in short sentences, coarse breath sounds bilaterally, some scattered wheezing, no ronchi, bilateral rales, some accessory muscle use. GASTROINTESTINAL: Soft, non-tender, non-distended, normal active bowel sounds, no organomegaly, no pulsatile masses, no CVA tenderness. NEUROLOGIC: Lucid with normal mental status. Normal facial symmetry. Moves all extremities symmetrically and with purpose. No truncal ataxia. Speech is fluid without evidence of dysarthria or aphasia, no focal deficits appreciated. MUSCULOSKELETAL: There is full range of motion of all extremities. There is no joint pain or joint swelling or joint erythema. There is no muscle pain or tenderness or swelling. EXTREMITIES: warm, well-perfused, no cyanosis, no clubbing, no edema, no acute deformities. Skin: warm, dry, no rashes or lesions, no jaundice, no petechiae orpurpura. No ecchymosis. PSYCHIATRIC: Normal affect, normal insight, normal concentration. Focused exam: Thoracotomy scar clean, dry, intact] Progress Results/Orders Results/Orders Orders - TAYLOR DOUGLASS DO Chest,Single View (08/11/24 16:24) Monitor (08/11/24 16:04) Saline Lock (08/11/24 16:04) Oxygen (08/11/24 16:04) Hs Troponin I W Calculations (08/11/24 18:04) Hs Troponin I W Calculations (08/11/24 19:04) Svn Treatment (08/11/24 16:39) High Flow O2 Daily (08/11/24 16:39) Completed Orders - TAYLOR DOUGLASS DO Chest,Single View (08/11/24 16:24) Cbc/Diff (08/11/24 16:04) PBNP (08/11/24 16:04) Electrocardiogram (08/11/24 16:04) CMP (08/11/24 16:04) Hs Troponin I W Calculations (08/11/24 16:04) Lactic,2hr (08/11/24 16:04) Procalcitonin (08/11/24 16:04) Ipratropium/Albuterol Nebule (Ipratrop/A (08/11/24 16:40) Man Diff (08/11/24 16:20) Medications Received in ER Medications (Trade) Dose Ordered Sig/Sarah Route PRN Reason Start Time Stop Time Status Last Admin Dose Admin (ipratrop/ albuterol 0.5-3(2.5) MG/3ml nebule) 3 ml ONCE ONCE NEB 08/11/24 16:40 08/11/24 16:46 DC 08/11/24 16:51 3 ML Vital Signs 08/11/24 08/11/24 08/11/24 08/11/24 16:05 16:22 16:34 16:35 Temp 96.6 Pulse 66 66 Resp 27 21 10 B/P (MAP) 131/56 123/48 (73) Pulse Ox 99 96 96 O2 Delivery Nasal Cannula* O2 Flow Rate 15.0 6.0 6 FiO2 44 08/11/24 08/11/24 08/11/24 16:53 16:59 17:05 Pulse 69 70 69 Resp 18 17 19 B/P (MAP) 141/58 (85) Pulse Ox 98 100 96 O2 Delivery Nasal Cannula* Nasal Cannula* O2 Flow Rate 6 5 5.0 FiO2 44 40 Laboratory Tests Test 08/11/24 16:20 White Blood Count 13.8 H Red Blood Count 2.56 L Hemoglobin 7.6 L Hematocrit 22.9 L Mean Corpuscular Volume 89.5 Mean Corpuscular Hemoglobin 29.8 Mean Corpuscular Hemoglobin Concent 33.3 Red Cell Distribution Width 14.3 Platelet Count 362 Mean Platelet Volume 8.1 Neutrophils (%) (Auto) 76.4 H Lymphocytes (%) (Auto) 10.7 L Monocytes (%) (Auto) 10.6 Eosinophils (%) (Auto) 1.6 Basophils (%) (Auto) 0.7 Neutrophils # (Auto) 10.6 H Lymphocytes # (Auto) 1.5 Monocytes # (Auto) 1.5 H Eosinophils # (Auto) 0.2 Basophils # (Auto) 0.1 CBC Comment Differential Total Cells Counted 100 Neutrophils % (Manual) 75.0 Band Neutrophils % 1.0 Lymphocytes % (Manual) 10.0 L Monocytes % (Manual) 10.0 Eosinophils % (Manual) 2.0 Metamyelocytes % 2.0 H Platelet Estimate Normal Red Blood Cell Morphology Perf Polychromasia 1+ Hypochromasia 1+ Basophilic Stippling Anisocytosis 1+ Sodium Level 139 Potassium Level 4.3 Chloride Level 100 Carbon Dioxide Level 37.0 H Anion Gap 2 L Blood Urea Nitrogen 30 H Creatinine 0.85 Estimated GFR/1.73 m2 67 BUN/Creatinine Ratio 35.3 H Glucose Level 137 H Lactic Acid Level 1.5 Calcium Level 8.5 Total Bilirubin 0.6 Aspartate Amino Transf (AST/SGOT) 36 Alanine Aminotransferase (ALT/SGPT) 72 Alkaline Phosphatase 133 H Troponin I High Sensitivity 125 *H Pro-B-Type Natriuretic Peptide 3644 H Total Protein 5.6 L Albumin 2.4 L Globulin 3.2 Albumin/Globulin Ratio 0.8 L Procalcitonin < 0.05 Chemistry Comments Medical Decision Making Findings Facility Status: [facility], [facility] process The plan was discussed with the patient, who demonstrates clear understanding of the plan and is in agreement with the plan unless otherwise noted in the chart. All questions have been answered, all concerns were addressed unless otherwise documented. I was available throughout their ED stay for frequent reassessment and questions. Differential Diagnoses (considered and possible or likely): [CHF, COPD, ACS, pneumonia, occult bacteremia, less likely COVID, less likely PE] ??Differential Diagnoses (considered and unlikely, not requiring evaluation currently): [See above] MDM Data Please see HPI for the following: Independent Historians and external Records Review. Historian: [Patient] Independent Historians: ?[Record review] Medication Management: [Reviewed medication list] Social History and determinants: [Reviewed] Please see the body of the note for the following: Any independent interpretations of ECG, imaging studies. All vitals signs/haemodynamics, ordered tests were independently reviewed and interpreted by myself. Nursing triage complaint and vitals reviewed, additional nursing notes were reviewed as available and I agree unless otherwise noted or documented in contradiction in the chart Vital Signs: Independently reviewed Labs: Independently interpreted Imaging: Independently interpreted Old Medical Records: Independently reviewed, see HPI for relevant summary and information Pulse Oximetry: [92% on 6 L] interpreted as [hypoxia] by me [Base Wad Operator Adjuster: [Regular Rate, Regular rhythm, occasional PVC ectopy, NSR] reviewed and interpreted by me] Additionally notably showing: [Requires supplemental oxygen, elevated BNP] Tests considered but not ordered include: [Echo can be done on an inpatient basis] Social Determinants of Health Impact: Patient was evaluated in [facility], or [facility] [place] to healthcare due to below par ratio of patient to medical providers. [] Comorbid Conditions Impacting Present Evaluation and Care/Treatment: [Recent CABG] Management Discussions with other Healthcare Providers: [Hospitalist regarding admission] Treatment and Disposition Medication Management (Given or considered): []. See EMR for details Consideration for Hospitalization/Escalation/Deescalation of Care: Admission for observation has been considered, is necessary for further management of her hypoxia and shortness a breath ?ED Course:?[No clinical deterioration I] ?Shared decision making:?[] Code status:?FULL Please see the full Electronic Medical Record for full details of nursing doc umentation, medications list, other records of complete past medical history and conditions, vital signs, laboratory studies, and any radiologic study interpretations by radiologists. Portions of this note were completed using datango dictation software and as a result there may exist minor errors in spelling. I have reviewed elements of past family and social history and agree as included in note. Departure Disposition: ADMITTED INPATIENT Impression: Primary Impression: S/P CABG x 5 Additional Impressions: Hypoxia Difficulty breathing Acute on chronic systolic heart failure Condition: Improved Referrals: NO PRIMARY CARE PROVIDER (PCP) Signature Scribe Signature: No scribe Attestation: This note accurately reflects clinical decisions, work performed by myself, DO EVONNE Santiago NICHOLAS M DO August 11, 2024 18:03
[2024-08-11] MEDS ORDERED: magnesium Cl slow-release 64mg tablet PO PRN (20:55)
[2024-08-11] MEDS ORDERED: magnesium sulf-water 2g/50mL 50 ML IV PRN (20:55)
[2024-08-11] MEDS ORDERED: acetaminophen 325mg tablet PO PRN (20:55)
[2024-08-11] MEDS ORDERED: potassium Cl 40MEQ/1/2NS 520ml 520 ML IV PRN (20:55)
[2024-08-11] MEDS ORDERED: magnesium hydroxide 30ml (MOM) UD suspension PO PRN (20:55)
[2024-08-11] MEDS ORDERED: ondansetron/PF 4mg/2ml inj IV PRN (20:55)
[2024-08-11] MEDS ORDERED: mag hydrox/Alum hydrox/simeth 30ml oral suspension PO PRN (20:55)
[2024-08-11] MEDS ORDERED: magnesium sulf-water 4G/100mL 100 ML IV PRN (20:55)
[2024-08-11] MEDS ORDERED: morphine 2 MG/ML inj. syringe IV PRN (20:55)
[2024-08-11] MEDS ORDERED: potassium Cl 20 mEq SR tablet PO PRN ×2 (20:55)
[2024-08-11] MEDS: furosemide 10 MG/1 ML 10ml inj IV ONE (21:30)
[2024-08-11 21:48] LABS: THYROID STIMULATING HORMONE 3.59 ulU/ml (0.34-4.50)
[2024-08-11] MEDS: morphine 2 MG/ML inj. syringe IV PRN (22:08)
--- NOTE | 2024-08-11 22:33 | HISTORY AND PHYSICAL-Residence ---
History & Physical Providers to CC Resident Creating Document: CHRIS LOERA, RES ~ History of Present Illness Primary Medical Doctor: [facility]. Robotics Technician: Dr. Pettit Reason for Admit\Complaint: SOB History of Present Illness [facility]. Robotics Technician: Dr. Pettit. 69-year-old female patient with past medical history of hypertension, CAD s/p CABG one week ago and coronary stents five years ago, arthritis, COPD came to the hospital with chief complaint of shortness of breath. The patient is was recently discharged to a re[facility] ([facility] from [facility] after her CABG performed on 08/03/[address] Ahumada. The patient mentioned that she was on need of right knee replacement surgery due to osteoarthritis, the patient was seen by Dr. Callahan for preoperative cardiac clearance. Unfortunately she had an exercise stress test which was positive this led to left heart catheterization revealing a moderate to significant distal left main stenosis as well as graded on 80% lesions of the LAD diagonal obtuse marginal. Due to these findings the patient underwent CABG on 08/03/2024. The patient was recently discharged on 08/11/2024 to rehab service, the patient endorsed shortness of breath, currently on 6 L of oxygen, as per patient she does not use oxygen at home, she was on oxygen after surgery with a proximally 4 L. as per patient she started having shortness of breath yesterday, associated cough was evidenced with clear sputum which started approximately the same time. She mentioned that her apparent cause was after she choked yesterday. The patient also endorses mild chest pain 7/10 in intensity without radiation which she mentioned that she normally have it all the time. The patient currently denies urinary or intestinal symptoms. Allergies: Coded Allergies: eucalyptus (Verified Allergy, Unknown, 07/31/24) Home Medications Home Medications Active Reported Carvedilol 12.5 Mg Tablet 1 Tab PO Q12H 30 Days Cyclobenzaprine* (Cyclobenzaprine HCl) 10 Mg Tablet 1 Tab PO HS PRN Naproxen 500 Mg Tablet 500 Mg PO BID Allopurinol 100 Mg Tablet 1 Tab PO DAILY 30 Days Ecotrin* (Aspirin) 81 Mg Tablet.dr 1 Tab PO DAILY 30 Days Proair Hfa (Albuterol Sulfate) 1 Puff Inh 2 Puffs INH Q4HPRN PRN 21 Days Atorvastatin Calcium 80 Mg Tablet 1 Tab PO DAILY 30 Days Past Medical History Past Medical History Hypertension. CAD s/p three stents five years ago. S/p CABG on 08/03/2024 Bilateral knee osteoarthritis. COPD as per patient because of secondhand smoker, using albuterol as needed. Past Surgical History Surgical History Comment Appendectomy in 1971. Eye surgery in 1963. CABG on 08/03/2024. Right shoulder orthopedic surgery. Right wrist surgery for carpal tunnel syndrome 15 years ago. Past Social History Smoking: Non-Smoker Alcohol Use: None Drug Use: None Lives with: Family Lives In: Home Occupation: retired (She used to be caregiver) ROS All Other Systems: Reviewed and Negative Exam Vitals: Vital Signs Date Time Temp Pulse Resp B/P (MAP) Pulse Ox O2 Delivery O2 Flow Rate FiO2 08/11/24 22:25 77 20 135/90 (105) 95 6.0 08/11/24 16:59 Nasal Cannula* 40 08/11/24 16:05 96.6 Physical exam: General: Well alert, well oriented, not confused, not agitated, in mild acute distress, well cooperated during the physical. HEENT: Conjunctive are pink, sclerae clear, no icterus, pupil is equal in both sides, reactive to light, no ear discharge, no pharyngeal erythema or an edema. Neck: Supple, no JVD, no lymphadenopathy and thyromegaly. Chest: Equal air entry on both lungs, presence of diffuse wheezing bilaterally. Presence of scar in the midline of the chest from previous CABG without signs of hematoma, infection or inflammation. Cardiovascular: S1-S2 regular sinus rhythm and, regular rate, no gallops, no rubs, no murmurs Abdomen: No visible peristalsis, Bowel sounds present on auscultation, soft, nontender, no guarding, no rigidity Extremities: No obvious deformities, 3+ pedal edema bilaterally, capillary refill intact, peripheral pulsations are intact on both sides, presence of scars in the left lower extremity from previous CABG surgery without signs of infection, inflammation or hematoma. Presence of ecchymosis in the left thigh. Central Nervous System: No focal neurological deficits, no motor or sensory weakness in all 4 extremities, could move all 4 extremities, 2+ deep tendon reflexes, negative Babinski. Musculoskeletal: No joint swelling, deformities, inflammations, and no scoliosis and back tenderness Skin: Warm and dry. Diagnostic Data Last Recorded Lab Results: 08/11/24 1620 08/11/24 1620 Advance Care Planning Advanced Care plannin - 30 Minutes (I spent a total of 17 minutes on reviewing various resuscitative measures/ACP with the patient at the time of admission. The patient has decided on a DNR code status.) Additional Plan Assessment and plan: 69-year-old female patient came to the hospital with chief complaint of shortness of breath. Acute exacerbation of diastolic heart failure with preserved ejection fraction of 60%: S/p CABG on 08/03/2024: The patient came to the hospital with chief complaint of shortness of breath. Presence of 3+ pedal edema on physical exam. Echocardiogram on 08/03/2024: Overall LVEF is about 60%. The left atrium size is normal. Incidental saline push showed no bubbles crossing the atrial septum. Left atrial appendage is visualized in multiple planes and appears normal without debris. Pulmonary vein identified and isolated by 2D and color Doppler. ProBNP 3644. Dr. Ahumada was contacted by ER physician. Awaiting recommendations. Aspirin 81 mg daily. Lasix 40 mg IV b.i.d. Acute exacerbation of COPD: Patient came to the hospital with chief complaint of shortness of breath. Wheezing on physical exam. Chest x-ray: Cardiomegaly with median sternotomy. No evidence of airspace consolidation pulmonary venous congestion. Methylprednisolone 125 mg IV once. Methylprednisolone 60 mg IV b.i.d. Ceftriaxone 1 g IV daily. Azithromycin 500 mg daily. Culturelle [id number] mmu b.i.d. DuoNebs q.2h p.r.n. DuoNeb q.4h scheduled. Normocytic normochromic anemia: Hemoglobin 7.6, hematocrit 22.9, MCV 89.5. Follow-up iron studies. Hypertension: Current blood pressure 135/90. We will continue metoprolol 25 mg b.i.d. after med reconciliation. Code status: DNR DVT prophylaxis: Heparin Analgesia/sedation: [place] Line/tube: PIV GI prophylaxis: Protonix 40 mg p.o. Nutrition: Heart healthy diet PT: Ordered Prognosis: Ordered Disposition: The patient will be admitted to PCU with telemetry Chris Rogers Internal Medicine Resident [facility] Tele ICU consult and rounding was completed using HIPAA complaint audio-visual aid. I discussed the case with the resident after evaluating the patient and I agree with the assessment and plan and the decision making. Melly Carreon MD Critical Care Date of Service: August 11, 2024 Billing Provider: MELLY CARREON MD, FRANCO LUIS, RES August 11, 2024 22:33 MELLY CARREON MD August 12, 2024 01:22
[2024-08-11] MEDS ORDERED: ipratropium/albuterol 3ml nebule NEB PRN (23:10)
[2024-08-11 23:30] VITALS: BP 120/49; PULSE 80; RESP 26; TEMP 98.7; TEMP 98.8; O2SAT 94
[2024-08-11] MEDS: methylPREDNISolone sod succ 125mg/2ml vial IV ONE (23:31)
[2024-08-12] VITALS (27 sets, daily range): BP systolic 111–153; BP diastolic 43–97; PULSE 60–84; RESP 13–26; TEMP 97–97.9; O2SAT 90–99
[2024-08-12 00:12] LABS: ABG BASE EXCESS 8.4 mmol/L (-2.0-3.0); ABG HCO3 32.6 mmol/L (21.0-28.0); ABG OXYGEN SATURATION 95.2 % (94.0-98.0); ABG PCO2 (T) 44.2 mmHg (32.0-45.0); ABG PH (T) 7.486 (7.350-7.450); ABG PO2 (T) 80.3 mmHg (83.0-108.0); ALLEN'S TEST Modified; FCOHb 0.4 % (0.5-1.5); FHHb 4.8 % (0.0-5.0); FLOW 6 L/min; FMetHb 0.3 % (0.0-1.5); FO2Hb 94.5 % (94.0-98.0); MODE NASAL CANNULA; TOTAL HEMOGLOBIN 7.7 G/dl (12.0-16.0)
[2024-08-12 00:30] LABS: % IRON SATURATION 7 % (11-46); IRON 16 UG/DL (49-151); TOTAL IRON BINDING CAPACITY 239 UG/DL (259-388)
[2024-08-12] MEDS: CefTRIAXone/D5W-Rocephin 1gm 50 ML IV SCH (00:35)
[2024-08-12] MEDS: lactobacillus rhamnosus 10,000 MMU CELLS/CAPSULE PO SCH (00:46)
[2024-08-12] MEDS: azithromycin 250mg tablet PO SCH (00:47)
[2024-08-12] MEDS ORDERED: FURO-150 PO (01:29)
[2024-08-12] MEDS ORDERED: ALLO100T PO (01:32)
[2024-08-12] MEDS ORDERED: AMI200T PO (01:34)
[2024-08-12] MEDS ORDERED: ATOR10TA87 PO (01:35)
[2024-08-12] MEDS ORDERED: FERR325T28 PO (01:37)
[2024-08-12] MEDS ORDERED: HYDR-3973 PO (01:39)
[2024-08-12] MEDS ORDERED: MULT-1249 PO (01:43)
[2024-08-12] MEDS ORDERED: LOP12.5T PO (01:44)
[2024-08-12] MEDS ORDERED: cyclobenzaprine 10mg tablet PO PRN (01:50)
[2024-08-12] MEDS: ipratropium/albuterol 3ml nebule NEB SCH (02:13)
[2024-08-12] MEDS ORDERED: LEVO-65 PO (02:14)
[2024-08-12] MEDS ORDERED: FOLI1TAB27 PO (02:14)
[2024-08-12] MEDS: HYDROcodone/acetaminophen 5mg/325mg tablet PO PRN (02:39)
[2024-08-12 03:59] LABS: BASOPHILS % (AUTO) 0.3 % (0-1); EOSINOPHILS % (AUTO) 0.3 % (0-6); HEMATOCRIT 23.3 % (35.0-45.0); HEMOGLOBIN 7.9 g/dl (12.0-16.0); LYMPHOCYTES # (AUTO) 0.4 X10'3 (1.1-4.8); LYMPHOCYTES % (AUTO) 2.8 % (21-51); MEAN CORPUSCULAR HEMOGLOBIN 30.1 PG (27.0-31.0); MEAN CORPUSCULAR HGB CONC 33.9 g/dL (33.0-36.5); MEAN CORPUSCULAR VOLUME 88.9 FL (78-98); MEAN PLATELET VOLUME 7.7 FL (7.4-10.4); MONOCYTES # (AUTO) 0.8 X10'3 (0-0.9); MONOCYTES % (AUTO) 5.7 % (2-12); NEUTROPHILS # (AUTO) 13.6 X10'3 (1.8-7.7); NEUTROPHILS % (AUTO) 90.9 % (42-75); PLATELET COUNT 374 X10'3 (140-440); RED BLOOD COUNT 2.62 X10'6 (4.20-5.60); RED CELL DISTRIBUTION WIDTH 14.1 % (11.5-14.5)
[2024-08-12 04:07] LABS: ALANINE AMINOTRANSFERASE 65 U/L (12-78); ALBUMIN 2.5 G/DL (3.4-5.0); ALBUMIN/GLOBULIN RATIO 0.7 (1.1-1.5); ALKALINE PHOSPHATASE 132 IU/L (46-116); ANION GAP 5 (8-16); ASPARTATE AMINO TRANSFERASE 34 U/L (10-37); BILIRUBIN,TOTAL 0.5 MG/DL (0.1-1.0); BLOOD UREA NITROGEN 27 MG/DL (7-18); BUN/CREATININE RATIO 31.4 (10.0-20.0); CALCIUM 8.5 MG/DL (8.5-10.1); CHLORIDE 99 MMOL/L (99-107); CREATININE 0.86 MG/DL (0.40-0.90); GLUCOSE 197 MG/DL (70-104); POTASSIUM 4.3 MMOL/L (3.5-5.1); SODIUM 140 MMOL/L (135-145); TOTAL CARBON DIOXIDE 36.3 MMOL/L (24-32); TOTAL PROTEIN 6.3 G/DL (6.4-8.2); eCRCL 56 ML/MIN; eGFR 66 ML/MIN
[2024-08-12 04:10] LABS: MAGNESIUM 2.2 MG/DL (1.5-2.4)
[2024-08-12 04:15] LABS: ANISOCYTOSIS FEW; PLATELET ESTIMATE NORMAL; TOTAL CELLS COUNTED 100
[2024-08-12] MEDS: K and/or MAG REPLACEMENT MC SCH (07:11)
[2024-08-12] MEDS ORDERED: docusate sod 100mg capsule PO SCH (08:00)
[2024-08-12] MEDS: pantoprazole 40mg Tablet.DR PO SCH (08:22)
[2024-08-12] MEDS: aspirin 81mg, enteric-coated 1 TAB TABLET.DR PO SCH (08:24)
[2024-08-12] MEDS: ferrous sulfate 325mg tablet PO SCH (08:24)
[2024-08-12] MEDS: allopurinol 100mg tablet PO SCH (08:25)
[2024-08-12] MEDS: multivitamins, therapeutics tablet PO SCH (08:25)
[2024-08-12] MEDS: metoprolol tartrate 12.5mg (1/2 tablet) PO SCH (08:25)
[2024-08-12] MEDS: amiodarone 200mg tablet PO SCH (08:25)
[2024-08-12] MEDS: sennosides 8.6mg tablet PO SCH (08:26)
[2024-08-12] MEDS: methylPREDNISolone sod succ 125mg/2ml vial IV SCH (08:26)
[2024-08-12] MEDS: furosemide 40mg/4ml inj IV SCH (08:26)
[2024-08-12] MEDS: heparin, porcine 5000 units/ml vial SQ SCH (08:27)
--- NOTE | 2024-08-12 08:47 | PROGRESS NOTE ---
Progress Note CV Providers to CC ~ Progress Note: Patient readmitted last night for shortness of breath. Tells me this began after choking on a piece of food. Central Line/PICC still needed: N\A Franco Indications Met/Not Met: F/C Indications Not Met Antibiotics Ordered?: Yes If Yes, Indications?: Presumptive therapy Subjective Subjective Patient feeling better this morning. She would like to have more juice to drink. Objective Vitals Vital Signs Date Time Temp Pulse Resp B/P (MAP) Pulse Ox O2 Delivery O2 Flow Rate FiO2 08/12/24 08:25 73 08/12/24 07:58 20 High Flow [place] 8.0 08/12/24 07:54 99 08/12/24 07:51 55 08/12/24 06:00 97.0 128/66 (86) Lab Results: 08/12/24 0343 08/12/24 0343 Objective Lungs decreased at left base but otherwise fairly clear. A little bit of expiratory wheezing. No real crackles. Sternal incision clean and dry. Sternum is stable. Cardiac exam regular rate and rhythm without murmur, S3 or S4. Cardiac Rhythm: Sinus Rhythm Problem\Assessment\Plan Additional Plan Patient readmitted most likely due to a combination of volume overload as well as atelectasis. Need to increase pulmonary toilet as well as diuresis. Steroids contraindicated in postoperative patient. In addition we will stop antibiotics due to no organism being treated. Doubt that this represents a pulmonary infection. Need to mobilize and push respiratory therapy. Should be able to go back to rehab in a day or two KERI CALLES III, MD August 12, 2024 08:47
[2024-08-12] MEDS ORDERED: CefTRIAXone/D5W-Rocephin 1gm 50 ML IV SCH (14:30)
[2024-08-12] MEDS ORDERED: methylPREDNISolone sod succ 125mg/2ml vial IV SCH (14:30)
[2024-08-12] MEDS ORDERED: azithromycin/NS 500mg/250ml 250 ML IV SCH (14:30)
--- NOTE | 2024-08-12 14:40 | PROGRESS NOTE- Residence ---
Progress Note - Resident Providers to CC Resident Creating Document: NORMA ANAYA CC: REMY HINES MD ~ Antibiotic Timeout Antibiotic Ordered?: Yes Subjective Patient was examined at bedside today. She reports the feel slightly better with improvement of shortness of breath. Still on 6 L of oxygen. She does not use oxygen at baseline Objective Vital Signs Date Time Temp Pulse Resp B/P (MAP) Pulse Ox O2 Delivery O2 Flow Rate FiO2 08/12/24 11:00 97.1 60 18 111/43 (65) 93 Nasal Cannula 8.0 08/12/24 10:41 52 Result Diagram: 08/12/24 0343 08/12/24 0343 General: Well alert, well oriented, not confused, not agitated HEENT: Conjunctive are pink, sclerae clear, no icterus, pupil is equal in both sides, reactive to light, no ear discharge, no pharyngeal erythema or an edema. Neck: Supple, no JVD, no lymphadenopathy and thyromegaly. Pulmonary/Chest: Equal air entry on both lungs, presence of diffuse expiratory wheezing bilaterally. Presence of scar in the midline of the chest from previous CABG without signs of hematoma, infection or inflammation Cardiovascular: S1-S2 regular sinus rhythm and, regular rate, no gallops, no rubs, no murmurs Abdomen: No visible peristalsis, Bowel sounds present on auscultation, soft, nontender, no guarding, no rigidity Extremities: No obvious deformities, 1+ pedal edema bilaterally, capillary refill intact, peripheral pulsations are intact on both sides, presence of scars in the left lower extremity from previous CABG surgery without signs of infection, inflammation or hematoma. Presence of ecchymosis in the left thigh. Central Nervous System: No focal neurological deficits, no motor or sensory weakness in all 4 extremities, could move all 4 extremities, 2+ deep tendon reflexes, negative Babinski. Musculoskeletal: No joint swelling, deformities, inflammations, and no scoliosis and back tenderness Skin: Warm and dry. Plan Plan 69-year-old female patient came to the hospital with chief complaint of shortness of breath. Admitted for evaluation and management of heart failure/COPD exacerbation Acute exacerbation of diastolic heart failure with preserved ejection fraction of 60% CAD S/p CABG on 08/03/2024 Exacerbation of COPD Type 2 MT The patient came to the hospital with chief complaint of shortness of breath. Presence of 3+ pedal edema on physical exam. Echocardiogram on 08/03/2024: Overall LVEF is about 60%. The left atrium size is normal. Incidental saline push showed no bubbles crossing the atrial septum. Left atrial appendage is visualized in multiple planes and appears normal without debris. Pulmonary vein identified and isolated by 2D and color Doppler. Chest x-ray: Cardiomegaly with median sternotomy. No evidence of airspace consolidation pulmonary venous congestion. ProBNP 3644. Initial mildly elevated troponin which then trended down Aspirin 81 mg daily. Continue amiodarone 200 mg b.i.d. Initially started on: Methylprednisolone 125 mg IV once, Methylprednisolone 60 mg IV b.i.d, Lasix 40 mg IV b.i.d, ceftriaxone and azithromycin, DuoNebs q.2h p.r.n, DuoNeb q.4h scheduled Per Dr Ahumada: DC steroids and antibiotics, continue diuresis and respiratory therapy Normocytic normochromic anemia, likely secondary to blood loss during surgery Hemoglobin 7.9 Continue monitoring Hypertension Hyperlipidemia Blood pressure stable Continue metoprolol 25 mg b.i.d Code status: DNR DVT prophylaxis: Heparin Analgesia/sedation: [place] Line/tube: PIV GI prophylaxis: Protonix 40 mg p.o. Nutrition: Heart healthy diet PT: Ordered Prognosis: Ordered Disposition: Continue care in PCU with tele monitoring. Continue recommendations per Dr. Ahumada Date of Service: August 12, 2024 Billing Provider: REMY HINES MD, LEONARDO LUIS August 12, 2024 14:40
[2024-08-12 21:10] LABS: CHOL/HDL RATIO 3.1 (0.00-4.99); CHOLESTEROL 143 MG/DL (0-200); HDL CHOLESTEROL 46 MG/DL (35-60); LDL CHOLESTEROL 83 MG/DL (50-100); TRIGLYCERIDES 139 MG/DL (20-135)
[2024-08-12] MEDS: atorvastatin 10mg tablet PO SCH (21:35)
[2024-08-13] VITALS (21 sets, daily range): BP systolic 98–156; BP diastolic 53–66; PULSE 53–78; RESP 16–21; TEMP 97.1–98.7; O2SAT 93–99
[2024-08-13] MEDS: HYDROcodone/acetaminophen 10/325mg tab PO PRN (00:33)
--- NOTE | 2024-08-13 08:36 | PROGRESS NOTE ---
Progress Note CV Providers to CC ~ Antibiotics Ordered?: No Subjective Subjective Denies SOB today. Looking forward to ambulation. Says she is working with her IS. Objective Vitals Vital Signs Date Time Temp Pulse Resp B/P (MAP) Pulse Ox O2 Delivery O2 Flow Rate FiO2 08/13/24 07:59 70 20 Nasal Cannula 4.0 08/13/24 07:51 98 36 08/13/24 06:00 97.7 150/66 (94) Lab Results: 08/12/24 0343 08/12/24 0343 Objective Lungs - some coarse BS, clearing with cough Heart - RRR, SR Incisions - CDI Cardiac Rhythm: Sinus Rhythm Problem\Assessment\Plan Additional Plan Ambulate Continue pulm toilet. Back to rehab soon. Sepsis Screening Reassessment Date: August 13, 2024 Supervising MD Co-signing Provider: ARIELLA De La Cruz August 13, 2024 08:36
[2024-08-13 09:25] LABS: BASOPHILS % (AUTO) 0.1 % (0-1); EOSINOPHILS % (AUTO) 0 % (0-6); HEMATOCRIT 23.6 % (35.0-45.0); HEMOGLOBIN 7.7 g/dl (12.0-16.0); LYMPHOCYTES # (AUTO) 1.1 X10'3 (1.1-4.8); LYMPHOCYTES % (AUTO) 5.2 % (21-51); MEAN CORPUSCULAR HEMOGLOBIN 29.2 PG (27.0-31.0); MEAN CORPUSCULAR HGB CONC 32.4 g/dL (33.0-36.5); MEAN PLATELET VOLUME 7.6 FL (7.4-10.4); MONOCYTES # (AUTO) 1.6 X10'3 (0-0.9); MONOCYTES % (AUTO) 7.5 % (2-12); NEUTROPHILS # (AUTO) 18.6 X10'3 (1.8-7.7); NEUTROPHILS % (AUTO) 87.2 % (42-75); PLATELET COUNT 504 X10'3 (140-440); RED BLOOD COUNT 2.63 X10'6 (4.20-5.60); RED CELL DISTRIBUTION WIDTH 14.4 % (11.5-14.5); WHITE BLOOD COUNT 21.3 X10'3 (4.5-11.0)
[2024-08-13 09:59] LABS: ALANINE AMINOTRANSFERASE 58 U/L (12-78); ALBUMIN 2.5 G/DL (3.4-5.0); ALBUMIN/GLOBULIN RATIO 0.7 (1.1-1.5); ALKALINE PHOSPHATASE 126 IU/L (46-116); ASPARTATE AMINO TRANSFERASE 29 U/L (10-37); BILIRUBIN,TOTAL 0.4 MG/DL (0.1-1.0); BLOOD UREA NITROGEN 32 MG/DL (7-18); CALCIUM 8.8 MG/DL (8.5-10.1); CHLORIDE 100 MMOL/L (99-107); CREATININE 0.97 MG/DL (0.40-0.90); GLUCOSE 152 MG/DL (70-104); MAGNESIUM 2.2 MG/DL (1.5-2.4); TOTAL CARBON DIOXIDE 35.2 MMOL/L (24-32); TOTAL PROTEIN 6.2 G/DL (6.4-8.2); eCRCL 50 ML/MIN; eGFR 57 ML/MIN
[2024-08-13 10:42] LABS: ANION GAP 4 (8-16); POTASSIUM 3.9 MMOL/L (3.5-5.1); SODIUM 139 MMOL/L (135-145)
[2024-08-13] MEDS: methylPREDNISolone sod succ 125mg/2ml vial IV ONE (12:28)
--- NOTE | 2024-08-13 17:48 | PROGRESS NOTE- Residence ---
Progress Note - Resident Providers to CC Resident Creating Document: NORMA ANAYA CC: REMY HINES MD ~ Antibiotic Timeout Antibiotic Ordered?: No Subjective Patient was examined at bedside today. Breathing is slightly improved but she is still short of breath. She still complains of significant pain in surgical site Objective Vital Signs Date Time Temp Pulse Resp B/P (MAP) Pulse Ox O2 Delivery O2 Flow Rate FiO2 08/13/24 15:36 65 20 Nasal Cannula 4.0 08/13/24 15:28 94 36 08/13/24 15:00 97.1 107/60 (76) Result Diagram: 08/13/24 0850 08/13/24 0850 General: Well alert, well oriented, not confused, not agitated HEENT: Conjunctive are pink, sclerae clear, no icterus, pupil is equal in both sides, reactive to light, no ear discharge, no pharyngeal erythema or an edema. Neck: Supple, no JVD, no lymphadenopathy and thyromegaly. Pulmonary/Chest: Equal air entry on both lungs, presence of diffuse expiratory wheezing bilaterally. Presence of scar in the midline of the chest surgical scar without signs of hematoma, infection or inflammation Cardiovascular: S1-S2 regular sinus rhythm and, regular rate, no gallops, no rubs, no murmurs Abdomen: No visible peristalsis, Bowel sounds present on auscultation, soft, nontender, no guarding, no rigidity Extremities: No obvious deformities, 1+ pedal edema bilaterally, capillary refill intact, peripheral pulsations are intact on both sides, presence of scars in the left lower extremity from previous CABG surgery without signs of infection, inflammation or hematoma. Presence of ecchymosis in the left thigh. Central Nervous System: No focal neurological deficits, no motor or sensory weakness in all 4 extremities, could move all 4 extremities, 2+ deep tendon reflexes, negative Babinski. Musculoskeletal: No joint swelling, deformities, inflammations, and no scoliosis and back tenderness Skin: Warm and dry. Plan Plan 69-year-old female patient came to the hospital with chief complaint of shortness of breath. Admitted for evaluation and management of heart failure/COPD exacerbation Exacerbation of COPD Acute on chronic diastolic heart failure with preserved ejection fraction of 60%, improved CAD S/p CABG on 08/03/2024 Type 2 IN The patient came to the hospital with chief complaint of shortness of breath. Presence of 3+ pedal edema on physical exam. Repeated Echocardiogram showed EF of 65-70%, otherwise unremarkable Chest x-ray: Cardiomegaly with median sternotomy. No evidence of airspace consolidation pulmonary venous congestion. ProBNP 3644. Initial mildly elevated troponin which then trended down Aspirin 81 mg daily. Continue amiodarone 200 mg b.i.d. Continue DuoNebs q.2h p.r.n, DuoNeb q.4h scheduled Single dose of Solu-Medrol given today Continue recommendations Per Dr Ahumada Normocytic normochromic anemia, likely secondary to blood loss during surgery Hemoglobin 7.7 Continue monitoring Hypertension Hyperlipidemia Blood pressure stable Continue metoprolol 25 mg b.i.d Code status: DNR DVT prophylaxis: Heparin Analgesia/sedation: [place] Line/tube: PIV GI prophylaxis: Protonix 40 mg p.o. Nutrition: Heart healthy diet PT: Ordered Prognosis: Guarded Disposition: Continue care in PCU with tele monitoring. Continue recommendations per Dr. Ahumada Date of Service: August 13, 2024 Billing Provider: REMY HINES MD, LEONARDO LUIS August 13, 2024 17:48
[2024-08-14] VITALS (12 sets, daily range): BP systolic 125–148; BP diastolic 56–66; PULSE 61–76; RESP 15–22; TEMP 97.1–97.6; O2SAT 96–98
[2024-08-14] MEDS: furosemide 40mg/4ml inj IV SCH (08:05)
[2024-08-14 11:02] LABS: BASOPHILS % (AUTO) 0.1 % (0-1); EOSINOPHILS % (AUTO) 0 % (0-6); HEMATOCRIT 23.4 % (35.0-45.0); HEMOGLOBIN 7.6 g/dl (12.0-16.0); LYMPHOCYTES # (AUTO) 1.1 X10'3 (1.1-4.8); LYMPHOCYTES % (AUTO) 5.1 % (21-51); MEAN CORPUSCULAR HEMOGLOBIN 29.2 PG (27.0-31.0); MEAN CORPUSCULAR HGB CONC 32.4 g/dL (33.0-36.5); MEAN CORPUSCULAR VOLUME 90.1 FL (78-98); MEAN PLATELET VOLUME 7.9 FL (7.4-10.4); MONOCYTES # (AUTO) 1.7 X10'3 (0-0.9); MONOCYTES % (AUTO) 8.1 % (2-12); NEUTROPHILS # (AUTO) 18.6 X10'3 (1.8-7.7); NEUTROPHILS % (AUTO) 86.7 % (42-75); PLATELET COUNT 467 X10'3 (140-440); RED BLOOD COUNT 2.59 X10'6 (4.20-5.60); RED CELL DISTRIBUTION WIDTH 14.7 % (11.5-14.5); WHITE BLOOD COUNT 21.5 X10'3 (4.5-11.0)
[2024-08-14 11:15] LABS: ALANINE AMINOTRANSFERASE 50 U/L (12-78); ALBUMIN 2.4 G/DL (3.4-5.0); ALBUMIN/GLOBULIN RATIO 0.7 (1.1-1.5); ALKALINE PHOSPHATASE 115 IU/L (46-116); ANION GAP 5 (8-16); ASPARTATE AMINO TRANSFERASE 24 U/L (10-37); BILIRUBIN,TOTAL 0.4 MG/DL (0.1-1.0); BLOOD UREA NITROGEN 33 MG/DL (7-18); BUN/CREATININE RATIO 37.1 (10.0-20.0); CALCIUM 8.5 MG/DL (8.5-10.1); CHLORIDE 100 MMOL/L (99-107); CREATININE 0.89 MG/DL (0.40-0.90); GLUCOSE 144 MG/DL (70-104); MAGNESIUM 2.3 MG/DL (1.5-2.4); SODIUM 141 MMOL/L (135-145); TOTAL CARBON DIOXIDE 36.5 MMOL/L (24-32); TOTAL PROTEIN 5.8 G/DL (6.4-8.2); eCRCL 54 ML/MIN; eGFR 63 ML/MIN
[2024-08-14] MEDS: guaiFENesin ER 600mg tablet PO SCH (11:49)
[2024-08-14] MEDS: methylPREDNISolone sod succ 125mg/2ml vial IV ONE (15:47)
--- NOTE | 2024-08-14 19:07 | DISCHARGE SUMMARY-Residence ---
Discharge Summary Providers to CC Resident Creating Document: NORMA ANAYA CC: REMY HINES MD ~ Discharge Summary Admission Diagnosis: SOB Hospital Course DATE OF ADMISSION: 08/11/2024 DATE OF DISCHARGE: 08/14/2024 Discharge Diagnosis\Comment: Acute hypoxic respiratory failure Exacerbation of COPD, improved Acute on chronic diastolic heart failure with preserved ejection fraction of 60%, improved CAD S/p CABG on 08/03/2024 Type 2 [place] Normocytic normochromic anemia, likely secondary to blood loss during surgery Hypertension Hyperlipidemia Operations\Procedures: None Consultants: Dr. Ahumada Complications: None Condition on DC: Stable for transfer Discharge Summary: Patient was admitted with the following HPI: 69-year-old female patient with past medical history of hypertension, CAD s/p CABG one week ago and coronary stents five years ago, arthritis, COPD came to the hospital with chief complaint of shortness of breath. The patient is was recently discharged to [facility] from [facility] after her CABG performed on 08/03/[address] Ahumada. The patient mentioned that she was on need of right knee replacement surgery due to osteoarthritis, the patient was seen by Dr. Callahan for preoperative cardiac clearance. Unfortunately she had an exercise stress test which was positive this led to left heart catheterization revealing a moderate to significant distal left main stenosis as well as graded on 80% lesions of the LAD diagonal obtuse marginal. Due to these findings the patient underwent CABG on 08/03/2024. The patient was recently discharged on 08/11/2024 to rehab service, the patient endorsed shortness of breath, currently on 6 L of oxygen, as per patient she does not use oxygen at home, she was on oxygen after surgery with a proximally 4 L. as per patient she started having shortness of breath yesterday, associated cough was evidenced with clear sputum which started approximately the same time. She mentioned that her apparent cause was after she choked yesterday. The patient also endorses mild chest pain 7/10 in intensity without radiation which she mentioned that she normally have it all the time. The patient currently denies urinary or intestinal symptoms. Hospital course: Patient was admitted with diagnosis of COPD/CHF exacerbation. She was started on IV Lasix, DuoNebs, IV steroids and IV antibiotics. Posteriorly, per Dr. Ahumada recommendations, scheduled IV steroids and IV antibiotics were discontinued. Patient slowly improved with scheduled DuoNebs and intermittent doses of IV steroids. Patient was also highly recommended to use her incentive spirometer and flutter regularly. Today, patient was back to 4 L of oxygen which was the amount she was discharged on initially. She will be transferred back to [facility], with the recommendations of continuing DuoNebs q.4 scheduled and q.2h p.r.n., continue regular use of incentive spirometer and flutter, azithromycin 500 mg for 3 days, and a prednisone taper. Patient remained hemodynamically stable during hospital course. She agreed with plan. Laboratory Tests Test 08/12/24 20:37 08/13/24 08:50 08/14/24 07:40 08/14/24 10:34 Triglycerides Level 139 MG/DL Cholesterol Level 143 MG/DL LDL Cholesterol 83 MG/DL HDL Cholesterol 46 MG/DL Cholesterol/HDL Ratio 3.1 Chemistry Comments White Blood Count 21.3 X10'3 21.5 X10'3 Red Blood Count 2.63 X10'6 2.59 X10'6 Hemoglobin 7.7 g/dl 7.6 g/dl Hematocrit 23.6 % 23.4 % Mean Corpuscular Volume 90.0 FL 90.1 FL Mean Corpuscular Hemoglobin 29.2 PG 29.2 PG Mean Corpuscular Hemoglobin Concent 32.4 g/dL 32.4 g/dL Red Cell Distribution Width 14.4 % 14.7 % Platelet Count 504 X10'3 467 X10'3 Mean Platelet Volume 7.6 FL 7.9 FL Neutrophils (%) (Auto) 87.2 % 86.7 % Lymphocytes (%) (Auto) 5.2 % 5.1 % Monocytes (%) (Auto) 7.5 % 8.1 % Eosinophils (%) (Auto) 0 % 0 % Basophils (%) (Auto) 0.1 % 0.1 % Neutrophils # (Auto) 18.6 X10'3 18.6 X10'3 Lymphocytes # (Auto) 1.1 X10'3 1.1 X10'3 Monocytes # (Auto) 1.6 X10'3 1.7 X10'3 Eosinophils # (Auto) 0.0 X10'3 0.0 X10'3 Basophils # (Auto) 0.0 X10'3 0.0 X10'3 CBC Comment Sodium Level 139 MMOL/L 141 MMOL/L Potassium Level 3.9 MMOL/L 4.0 MMOL/L Chloride Level 100 MMOL/L 100 MMOL/L Carbon Dioxide Level 35.2 MMOL/L 36.5 MMOL/L Anion Gap 4 5 Blood Urea Nitrogen 32 MG/DL 33 MG/DL Creatinine 0.97 MG/DL 0.89 MG/DL Estimated GFR/1.73 m2 57 ML/MIN 63 ML/MIN BUN/Creatinine Ratio 33.0 37.1 Glucose Level 152 MG/DL 144 MG/DL Calcium Level 8.8 MG/DL 8.5 MG/DL Magnesium Level 2.2 MG/DL 2.3 MG/DL Total Bilirubin 0.4 MG/DL 0.4 MG/DL Aspartate Amino Transf (AST/SGOT) 29 U/L 24 U/L Alanine Aminotransferase (ALT/SGPT) 58 U/L 50 U/L Alkaline Phosphatase 126 IU/L 115 IU/L Total Protein 6.2 G/DL 5.8 G/DL Albumin 2.5 G/DL 2.4 G/DL Globulin 3.7 G/DL 3.4 G/DL Albumin/Globulin Ratio 0.7 0.7 Imaging: Chest x-ray: 1. Cardiomegaly with median sternotomy 2. No evidence of airspace consolidation pulmonary venous congestion Discharge physical exam: Vital Signs Date Time Temp Pulse Resp B/P (MAP) Pulse Ox O2 Delivery O2 Flow Rate FiO2 08/14/24 11:50 17 08/14/24 11:14 64 Nasal Cannula 4.0 08/14/24 11:04 98 36 08/14/24 11:00 97.6 131/57 (81) General: Well alert, well oriented, not confused, not agitated HEENT: Conjunctive are pink, sclerae clear, no icterus, pupil is equal in both sides, reactive to light, no ear discharge, no pharyngeal erythema or an edema. Neck: Supple, no JVD, no lymphadenopathy and thyromegaly. Pulmonary/Chest: Equal air entry on both lungs, improved expiratory wheezing bilaterally. Presence of scar in the midline of the chest surgical scar without signs of hematoma, infection or inflammation Cardiovascular: S1-S2 regular sinus rhythm and, regular rate, no gallops, no rubs, no murmurs Abdomen: No visible peristalsis, Bowel sounds present on auscultation, soft, nontender, no guarding, no rigidity Extremities: No obvious deformities, 1+ pedal edema bilaterally, capillary refill intact, peripheral pulsations are intact on both sides, presence of scars in the left lower extremity from previous CABG surgery without signs of infection, inflammation or hematoma. Presence of ecchymosis in the left thigh. Central Nervous System: No focal neurological deficits, no motor or sensory weakness in all 4 extremities, could move all 4 extremities, 2+ deep tendon reflexes, negative Babinski. Musculoskeletal: No joint swelling, deformities, inflammations, and no scoliosis and back tenderness Skin: Warm and dry. *Problems/Diagnosis: (1) Anemia due to acute blood loss (2) Acute on chronic systolic heart failure Status: Acute (3) Hypoxia Status: Acute Total Time Spent on D/C: > 30 Minutes Date of Service: August 14, 2024 Billing Provider: REMY HINES MD, LEONARDO LUIS August 14, 2024 19:07
--- NOTE | 2024-08-16 09:43 | CARDIOLOGY REPORT ---
APPROVED REPORT EXAM: Limited 2D, Doppler, and color-flow Echocardiogram. Patient Location: 3023[facility] Blood Pressure: 128/66 mmHg Heart Rate: 63 bpm Rhythm: Sinus Indications Congestive Heart Failure Shortness of Breath Troponin: 139, 110 Coronary Artery Disease CABG x 5 (08/03/24) Asthma ENTERTAINMENT DANCER: Vivienne Callahan MD Previous ECHO: 08/03/24, [facility], HD, EF: 60; mMR 2D Dimensions IVSd 1.0 (0.7-1.1cm) LVDd 5.4 cm PWd 0.8 (0.7-1.1cm) IVSs 1.5 (0.8-1.2cm) LVDs 3.4 (2.5-4.0cm) PWs 1.5 (0.8-1.2cm) LVOT Diameter 2.11 (1.8-2.4cm) LVEF(%) 66.2 (>50%) IVC 20.41 mmFS (%) 36.9 % SV 92.0 ml CO 5.6 L/min M-Mode Dimensions Left Atrium(MM) 3.28 (2.5-4.0cm) Aortic Root 2.94 (2.2-3.7cm) Aortic Valve AoV Peak Shin. 175.3 cm/s AoV VTI 37.2 cm AO Peak GR. 12.3 mmHg AO Mean GR. 5 mmHg LVOT VTI 34.36 cm LVOT Peak Shin. 144.6 cm/s COMFORT(VTI)/BSA 3.22 cm2/m2 COMFORT (VTI) 3.22 cm2 Mitral Valve MV E Velocity 122.0 cm/s MV Peak Gr. 8 mmHg MV DECEL TIME 308 ms MV A Velocity 121.5 cm/s MV PHT 80 ms E/A Ratio 1.0 MVA (PHT) 2.75 cm2 MV SGzf361.5 cm/s TDI Lateral E' P. V7.27 cm/s E/Lateral E' 16.8 Tricuspid Valve TR P. Velocity 170 cm/s RAP ESTIMATE 10 mmHg TR Peak Gr. 12 mmHg RVSP 22 mmHg LEFT VENTRICLE Normal LV size and wall thickness. Overall systolic function is normal. Overall LVEF is 65-70%. RIGHT VENTRICLE Right ventricle is grossly normal in size and function. AORTIC VALVE Trileaflet AV appears mildly sclerotic without stenosis. No insufficiency. MITRAL VALVE Mild mitral annular calcification without stenosis. Mild regurgitation. TRICUSPID VALVE Tricuspid valve is grossly normal in structure with trace regurgitation. PULMONIC VALVE Pulmonic valve is grossly normal in structure with physiologic insufficiency. GREAT VESSELS The aortic root is normal in size. The IVC is normal in size and collapses >50% with inspiration. PERICARDIUM Normal pericardium. No effusion. Other Information Study Quality: Poor due to body habitus Conclusion Normal LV size and wall thickness. Overall systolic function is normal. Overall LVEF is 65-70%. Right ventricle is grossly normal in size and function. Trileaflet AV appears mildly sclerotic without stenosis. No insufficiency. Mild mitral annular calcification without stenosis. Mild regurgitation. Tricuspid valve is grossly normal in structure with trace regurgitation. Pulmonic valve is grossly normal in structure with physiologic insufficiency. Normal pericardium. No effusion.
== END 2024-08-14 16:39 | DRG 280 ==
LOC: ER 16:04 → ED HOLD 20:58 → PCU 3S 22:50
PROVIDERS: ADMIT Internal Medicine Pulmonary Disease; ATTEND Family Medicine
DX: I11.0 Hypertensive heart disease with heart failure (principal); I50.23 Acute on chronic systolic (congestive) heart failure; I21.A1 Myocardial infarction type 2; J96.01 Acute respiratory failure with hypoxia; J44.1 Chronic obstructive pulmonary disease with (acute) exacerbation; D62 Acute posthemorrhagic anemia; Z20.822 Contact with and (suspected) exposure to COVID-19; Z66 Do not resuscitate; M17.0 Bilateral primary osteoarthritis of knee; I25.10 Atherosclerotic heart disease of native coronary artery without angina pectoris; G89.29 Other chronic pain; Z96.651 Presence of right artificial knee joint; E78.5 Hyperlipidemia, unspecified; Z90.49 Acquired absence of other specified parts of digestive tract; Z95.1 Presence of aortocoronary bypass graft; Z88.8 Allergy status to other drugs, medicaments and biological substances
CPT/HCPCS: 36415; 36600; 71045; 80053; 80061; 82728; 82803; 83540; 83550; 83605; 83735; 83880; 84145; 84443; 84484; 85007; 85018; 85025; 87040; 87081; 87811; 93005; 93308; 94640; 94760; 96374; 96375; 99285; A4620; G0378; J0696; J1644; J1938; J1940; J2270; J2919; J7030; J7040

== ENCOUNTER 2025-03-07 01:17 | Emergency (ER) | payer BC, MEDICAID ==
[~2025-03-07] VITALS: Ht 162.6 cm; Wt 115.0 kg
[~2025-03-07 01:17] MED LIST changes: -ALBU8.5H17 INH; +ALLO100T PO; -ALLO100T25 PO; +AMIO200T76 PO; -ASPI-1071 PO; -ATOR-2 PO; +ATOR10TA87 PO; +FURO-150 PO; -NAPR-1168 PO; +ZAR2.5T PO
[2025-03-07 01:26] VITALS: BP 162/87; PULSE 73; RESP 18; O2SAT 96
[2025-03-07] MEDS: LIDOcaine 1% 30ml preserv. free vial SQ STA (01:37)
--- NOTE | 2025-03-07 02:51 | Physician Documentation ---
History of Present Illness ~ Chief Complaint: Finger pain Stated Complaint: FINGER LAC Time Seen by MD: 01:22 Primary Medical Doctor: [facility] HPI 69 year old female struck her left index finger with a hatchet, sustaining a laceration. Denies other injury. Tetanus within 5 years: No Medication Reconciliation Allergies: Coded Allergies: eucalyptus (Verified Allergy, Unknown, 07/31/24) Scheduled Allopurinol* (Allopurinol*), 1 TAB PO DAILY, (Reported) Amiodarone Hcl (Cordarone), 200 MG PO BID, (Reported) Atorvastatin Calcium* (Lipitor*), 1 TAB PO HS, (Reported) Carvedilol (Carvedilol), 1 TAB PO BID, (Reported) Furosemide* (Lasix*), 2 TAB PO BID, (Reported) Metolazone (ZAROXOLYN tablet), 1 TAB PO DAILY, (Reported) Scheduled PRN Cyclobenzaprine* (Cyclobenzaprine*), 1 TAB PO HS PRN for ., (Reported) Past Medical History Past Medical History: Coronary Artery Disease, Hypertension, Myocardial Infarction, Asthma, Arthritis, Chronic Pain Past Surgical History: appendectomy, coronary bypass surgery, orthopedic surgeries, tubal ligation Other Past Surgical History: PCI stent; eye surgery as a child Patient History: FH: CABG (coronary artery bypass surgery) MOTHER, , Age: 81, Cause: Emphysema lung FH: emphysema FATHER FH: lung cancer MOTHER, , Age: 81, Cause: Emphysema lung Alcohol Use: None Drug Use: none Lives with: Family Lives In: Home Occupation: retired Review of Systems All Other Systems at this time: Reviewed and Negative Physical Exam Vital Signs: RN Vital Signs have been reviewed: Yes, Heart Rate: 73, Respiratory Rate: 18, BP: 162/87, Pulse Oximetry: 96, Weight: 115.000 Physical Exam Gen: no distress HEENT: EOMI, PERRL Pulm: no distress Cardiac: deferred Abdomen: deferred MSK: no deformity Skin: w/d; left index finger with 3cm laceration across dorsal aspect of proximal phalanx; no retained foreign bodies, no tendon or ligament injury, full strength in flexion and extension distally Neuro: nonfocal Psych: unremarkable Procedures Laceration Repair : Length (cm): 3 Anesthesia: Lidocaine w/ Epi Volume Anesthetic (mls): 7 Prep: irrigated by nurse Debrided: minimal Undermining: none Margins: flaps aligned Foreign Body: not identified Repaired: skin Wound Repaired With: sutures Suture Size/Type: 4-0, ethilon Number of Superficial Sutures: 3 Layer Closure?: No Dressing Applied: simple Splint Applied?: Yes Tolerated Procedure Well?: yes, no complications Procedure Note horizontal mattress technique Progress Results/Orders Results/Orders Orders - CINTIA HYATT MD Hand, Complete (3vw Min) (03/07/25 01:20) Completed Orders - CINTIA HYATT MD Hand, Complete (3vw Min) (03/07/25 01:20) Lidocaine 1% 30ml Vial (Xylocaine 1% Via (03/07/25 01:37) Vital Signs 03/07/25 03/07/25 01:26 01:28 Pulse 73 Resp 18 B/P (MAP) 162/87 Pulse Ox 96 Medical Decision Making Additional information obtaine: N/A Findings 69 year old female with laceration to left index finger. xray interpreted by me demonstrated no fracture or dislocation. Cleansed, repaired without complication, discharged with splint in place, return precautions. General Diff Dx:Considerations: Include: Other Shoulder Diff Dx:Consideration: Include: Other Elbow Diff Dx:Considerations: Include: Other Wrist Diff Dx:Considerations: Include: Other Hand Diff Dx:Considerations: Include: Other Finger Diff Dx:Considerations: Include: Other Additional Comment Ddx = laceration, tendon laceration, fracture, vascular injury Departure Disposition: 01 HOME / SELF CARE / HOMELESS Impression: Primary Impression: Laceration Condition: Stable Discharge Instructions: Laceration Care, Adult Referrals: NO PRIMARY CARE PROVIDER (PCP) Education Educated: Patient Educated regarding: diagnosis, treatment, prognosis, need for follow up Signature Scribe Signature: . Attestation: . CINTIA HYATT MD Mar 07, 2025 02:51
--- NOTE | 2025-03-07 06:37 | RADIOLOGY REPORT ---
EXAM: DI HAND, COMPLETE (3VW MIN) CLINICAL INDICATION: left index finger injury TECHNIQUE: DI HAND, COMPLETE (3VW MIN) COMPARISON: None FINDINGS/IMPRESSION: There is no evidence of acute fracture or dislocation. 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 The alignment is anatomical. There is no radiopaque foreign body.
== END 2025-03-07 03:00 | disposition home or self-care (01) ==
LOC: ER 01:17
DX: S61.211A Laceration without foreign body of left index finger without damage to nail, initial encounter (principal); M19.90 Unspecified osteoarthritis, unspecified site; I25.2 Old myocardial infarction; I25.10 Atherosclerotic heart disease of native coronary artery without angina pectoris; I10 Essential (primary) hypertension; G89.29 Other chronic pain; Z98.51 Tubal ligation status; Z95.1 Presence of aortocoronary bypass graft; Z90.49 Acquired absence of other specified parts of digestive tract; Z88.8 Allergy status to other drugs, medicaments and biological substances; Z79.899 Other long term (current) drug therapy; W22.8XXA Striking against or struck by other objects, initial encounter; Y93.89 Activity, other specified; Y92.89 Other specified places as the place of occurrence of the external cause; Y99.8 Other external cause status
CPT/HCPCS: 12002; 73130; 99283; A6258; A6449